=== PATIENT | male | born 1950 | race Caucasian/White ===

== ENCOUNTER 2017-08-13 13:59 | Emergency (ER) | payer OTHER, MEDICAID ==
[2017-08-13 14:21] VITALS: TEMP 97.5
--- NOTE | 2017-08-13 15:19 | EDPHY ---
H & P Time Seen by Provider: 08/13/17 14:58 HPI/ROS: HPI Numbness on top of foot. 67-year-old male by private vehicle. He is a resident at [facility]. He complains of numbness to the dorsal aspect of his left foot ongoing for 2-3 days but worse today. No history of trauma. He denies any loss of sensation or weakness elsewhere in his extremities. No headache. No neck pain. No back pain. He wears compression stockings on both legs secondary to peripheral edema. ROS: Constitutional: No fever, no chills. No weakness. Respiratory: No cough. No shortness of breath. Cardiac: No chest pain, no palpitations. Gastrointestinal: No abdominal pain, no vomiting, no diarrhea. Genitourinary: No hematuria. No dysuria or increased frequency with urination. Musculoskeletal: No back pain. No neck pain. No myalgias or arthralgias. Skin: Venous stasis dermatitis bilateral lower extremities. Neurological: No headache. As above. Otherwise no focal weakness or altered sensation.. Past medical history: Type 2 diabetes, hypertension, hyperlipidemia, sleep apnea. Pulmonary nodule. Social history: Here by himself. Nonsmoker. No alcohol. Physical Exam: General Appearance: Alert, no distress. Obese habitus. This patient is responding to questions appropriately and in full sentences. This patient appears well-hydrated and well-nourished. Eyes: Pupils equal and round no pallor or injection. No lid edema, erythema or injection. Respiratory: There are no retractions, lungs are clear to auscultation with good air movement bilaterally. Cardiovascular: Regular rate and rhythm. No murmur. Gastrointestinal: Abdomen is soft and nontender, no masses, bowel sounds normal. No focal tenderness at McBurney's point. No Broderick sign. Neurological: Motor sensory function is grossly intact except for some paresthesia L5 dermatomal distribution over the dorsum of the foot. He does have sensation to light touch in the web space between his 1st and 2nd toe. Cranial nerves are normal. Gait is normal. Skin: Warm and dry, no rashes. Musculoskeletal: Neck is supple and nontender. No midline cervical, thoracic, lumbar tenderness. Extremities are symmetrical. All joints range without pain or impingement. Psychiatric: No agitation. No depression. Database: EKG: Imaging: Procedures: Emergency department course: Vital signs reviewed. He is moderately hypertensive. Vital signs otherwise normal. He is afebrile. Patient's presentation is likely secondary to diabetic peripheral neuropathy. Another possibility is compression of his peroneal nerve from his compression stocking. I explained to him the plan the we would have him not wear his compression stocking at night for the next couple of nights to see if his altered sensation on the dorsum of his foot improved. He will follow up with his primary care physician at [facility] for re-evaluation in 1-2 days. Return to emergency department precautions were discussed with him. All of his questions were answered. He was discharged in good condition. Differential Diagnosis: The differential diagnosis on this patient includes but is not limited to peripheral neuropathy, localized compression a peripheral nerve. MS, CVA, radiculopathy unlikely. This represents a partial list of diagnoses considered. These considerations are based on history, physical exam, past history, reassessment and diagnostic testing. Constitutional: Initial Vital Signs Temperature (C) 36.4 C 08/13/17 14:09 Heart Rate 77 08/13/17 14:09 Respiratory Rate 18 08/13/17 14:09 Blood Pressure 158/68 H 08/13/17 14:09 O2 Sat (%) 96 08/13/17 14:09 O2 Delivery Mode Room Air Allergies/Adverse Reactions: No Known Allergies Allergy (Unverified 08/13/17 14:53) Home Medications: Medication Instructions Recorded Aspirin 08/13/17 Lasix 40 MG (*) 08/13/17 Levemir Flextouch 08/13/17 Lipitor 08/13/17 Metformin 1000 mg 08/13/17 Senna-S Tablet 08/13/17 Medical Decision Making - Data Points Laboratory Results: 08/13/17 14:48 POC Glucose 155 mg/dL H mg/dL (70-100) Point of Care Test Results: 08/13/17 14:48 POC Glucose 155 H Departure - Departure Disposition: Home, Routine, Self-Care Clinical Impression: Peripheral neuropathy Condition: Good Instructions: Peripheral Neuropathy (ED) Additional Instructions: Read and follow provided instructions. Follow-up with your primary care physician in 1-2 days for re-evaluation as discussed. Continue your medications as prescribed. Return to the emergency department for worsening symptoms or other serious concerns. Referrals: NONE *PRIMARY CARE P,. [Primary Care Provider] - As per Instructions
[2017-08-13 15:45] VITALS: BP 147/81; PULSE 94; RESP 22; O2SAT 93
--- NOTE | 2017-08-13 16:28 | ASMTCMCOM ---
CM Note CM Note Notes: Patient brought into ED from [facility] for numbness on top of his left foot, which started yesterday. Patient had never been to [facility] before and could not provide PMH to ED provider. This CM called and asked BM to fax over facesheet and pertinent PMH. Fax received. Patient is to be discharged back to ; this CM called and notified staff of pt's return. [facility] transport arranged. CM available for further assistance if needed. Date Signed: 08/13/2017 04:27 PM Electronically Signed By:Chastity Onofre RN
--- NOTE | 2017-08-13 16:49 | ASDISCHSUM ---
Discharge Information Plan Status:SNF Medically Cleared to Leave: Discharge Date:08/13/2017 03:45 PM D/C [facility]position[facility] ADT D/C Disposition:Home, Routine, Self-Care Projected Discharge Date:08/13/2017 03:45 PM Transportation at D/C:Wheelchair Van Discharge Delay Reason: Follow-Up Date:08/13/2017 03:45 PM Discharge Slot: Final Diagnosis: Placement Information Patient Contact Information Contact Name:HUNTER Relationship:Sister Address:[address] Work Phone: City:[place] Alternate Phone: State/Zip Code:[place] [address] Email: Financial Information Financial Class: Primary Plan Desc:MEDICARE OUTPATIENT Primary Plan Number:[id number] Secondary Plan Desc:MEDICA[place] Secondary Plan Number:[id number] Assessment Information [facility] CM Progress Note CM Note CM Note Notes: Patient brought into ED from [facility] for numbness on top of his left foot, which started yesterday. Patient had never been to [facility] before and could not provide PMH to ED provider. This CM called and asked to fax over facesheet and pertinent PMH. Fax received. Patient is to be discharged back to ; this CM called and notified staff of pt's return. [facility] transport arranged. CM available for further assistance if needed. Date Signed: 08/13/2017 04:27 PM Electronically Signed By:Chastity Onofre RN [facility] Emergency dept visits in Answers: 1 last 6 months Score: 1 Date Signed: 08/13/2017 04:48 PM Electronically Signed By:Chastity Sjoden, RN Intervention Information
== END 2017-08-13 15:45 | disposition home or self-care (01) ==
LOC: EDUNIT#
DX: G62.9 Polyneuropathy, unspecified (principal); I10 Essential (primary) hypertension; E11.9 Type 2 diabetes mellitus without complications; Z79.84 Long term (current) use of oral hypoglycemic drugs

== ENCOUNTER → 2017-08-26 | Outpatient (CLI) | payer OTHER, MEDICAID | LOC: FIMAGING 12:51 | DX: M51.36 Other intervertebral disc degeneration, lumbar region (principal); M12.88 Other specific arthropathies, not elsewhere classified, other specified site; M48.061 Spinal stenosis, lumbar region without neurogenic claudication; E11.40 Type 2 diabetes mellitus with diabetic neuropathy, unspecified; S31.819S Unspecified open wound of right buttock, sequela; E66.9 Obesity, unspecified; I10 Essential (primary) hypertension; E78.5 Hyperlipidemia, unspecified; G47.30 Sleep apnea, unspecified; R91.1 Solitary pulmonary nodule; M62.81 Muscle weakness (generalized); R26.89 Other abnormalities of gait and mobility ==

== ENCOUNTER → 2017-11-24 | Outpatient (CLI) | payer OTHER, MEDICAID | LOC: BHFA 15:30 | PROVIDERS: ATTEND Internal Medicine Cardiovascular Disease | DX: L97.821 Non-pressure chronic ulcer of other part of left lower leg limited to breakdown of skin (principal) ==

== ENCOUNTER → 2017-11-25 | Outpatient (CLI) | payer OTHER, MEDICAID | LOC: FIMAGING 07:23 | PROVIDERS: ATTEND Surgery | DX: I83.892 Varicose veins of left lower extremity with other complications (principal) ==

== ENCOUNTER 2017-12-16 11:06 | Inpatient (IN) | payer OTHER, MEDICAID ==
--- NOTE | 2017-12-16 11:07 | EDPHY ---
H & P Constitutional: Initial Vital Signs Temperature (C) 36.9 C 12/16/17 11:15 Heart Rate 92 12/16/17 11:15 Respiratory Rate 18 12/16/17 11:15 Blood Pressure 156/80 H 12/16/17 11:15 O2 Sat (%) 91 L 12/16/17 11:15 O2 Delivery Mode Room Air Allergies/Adverse Reactions: No Known Allergies Allergy (Unverified 08/13/17 14:53) Home Medications: Medication Instructions Recorded Aspirin [Aspirin 81mg (*)] 81 mg PO DAILY 08/13/17 Atorvastatin Calcium [Lipitor 40 40 mg PO HS 08/13/17 mg (*)] Furosemide [Lasix 40 MG (*)] 40 mg PO DAILY 08/13/17 Insulin Detemir [Levemir] 35 unit SQ HS 08/13/17 metFORMIN HCL [Glucophage 1000 mg] 1,000 mg PO BIDMEAL 08/13/17 Acetaminophen [Tylenol 325mg (*)] 650 mg PO TID 12/16/17 traMADol [Ultram 50 mg (*)] 100 mg PO TID 12/16/17 Medical Decision Making - Diagnostics Imaging Results: Imaging Impressions Chest X-Ray 12/16/17 11:15 Impression: No evidence for acute cardiopulmonary abnormality. Chronic findings as above. Chest/Thorax CTA 12/16/17 13:18 Impression: 1. No visible pulmonary embolus. 2. Nodular left lower lobe consolidation, with adjacent mucous plugging and linear opacities, suggesting this is inflammatory or infectious. Short-term follow-up CT is recommended in one month. 3. Scattered small noncalcified pulmonary nodules of doubtful clinical significance. These can also be followed up with chest CT. 4. Old unfused posterior left 7th and 8th rib fractures. Findings discussed with Narciso Cagle MD on 12/16/2017 at 1402 hours. Imaging: Discussed imaging studies w/ call center assistant Radiologist, I viewed and interpreted images myself ED Course/Re-evaluation: CHIEF COMPLAINT: Chest pain HISTORY OF PRESENT ILLNESS: This patient is an obese 67 year old male with history of hypertension, hyperlipidemia, and type II diabetes mellitus arriving via EMS complaining of chest pain onset 45 minutes ago. His discomfort is left-sided and feels like "someone is stepping on my chest". He rates this discomfort at 5/10 severity. Per EMS report, the patient had no relief after Nitro. The patient denies any shortness of breath. He did not feel well generally this morning, but was able to ambulate without increased difficulty. He endorses nausea, but has not vomited. He denies personal cardiac history of WA or stent placement. He has not undergone any provocative testing studies in the past. No fever, diarrhea, abdominal pain, urinary complaints, or other associated symptoms. REVIEW OF SYSTEMS: A 10 point review of systems was performed and is negative with the exception of the elements mentioned in the history of present illness. PHYSICAL EXAM: HR, BP, O2 Sat, RR. Temp noted General Appearance: Alert, well hydrated, appropriate, and non-toxic appearing. Head: Atraumatic without scalp tenderness or obvious injury Eyes: Pupils equal, round, reactive to light and accommodation, EOMI, no trauma , no injection. Ears: Clear bilaterally, no perforation, normal landmarks Nose: Atraumatic, no rhinorrhea, clear. Throat: There is no erythema or exudates, no lesions, normal tonsils, mucus membranes moist. Neck: Supple, 2+ carotid upstroke, nontender, no lymphadenopathy. Respiratory: No retractions, no distress, no wheezes, and no accessory muscle use. Lungs are clear to auscultation bilaterally. Cardiovascular: Regular rate and rhythm, no murmurs, rubs, or gallops. Bilateral carotid, radial, dorsalis pedis, and posterior tibial pulses intact. Good capillary refill all extremities. Gastrointestinal: Abdomen is obese, soft, nontender, no masses, no rebound, no guarding, no peritoneal signs. Musculoskeletal: Non-healing ulcer wounds present on lower extremities, dressings in place. Chronic venous stasis changes. Normal active ROM of all extremities. Neurological: Alert, appropriate, and interactive. Nonfocal neuro exam. Skin: No rashes, good turgor, no nodules on palpation. Past medical history: Type II Diabetes Mellitus, Hypertension, Hyperlipidemia, Sleep apnea, Pulmonary nodule. Past surgical history: Noncontributory. Family history: Noncontributory Social history: DIAGNOSTICS/PROCEDURES/CRITICAL CARE TIME: The 12 lead EKG was interpreted by myself. See hard copy and/or "tracemaster" electronic copy for interpretation. Sinus rhythm, rate 87. DIFFERENTIAL DIAGNOSIS: The differential diagnosis for the patient's chest pain included but was not limited to myocardial ischemia, pulmonary embolus, chest wall pain, pleural inflammation, and pulmonary infectious causes. MEDICAL DECISION MAKIN:07 Met EMS on arrival. 67 year old male presents with chest pain onset 45 minutes ago. Plan for EKG, chest x-ray, labs including CBC, chemistries, Troponin, D-dimer. EKG shows sinus rhythm, rate 87. Chest x-ray is negative for acute cardiopulmonary abnormality. Reviewed laboratory studies. Troponin negative. D-dimer is elevated at 1.02. Plan for CTA to rule out PE or other acute processes. 14:[address] Shah, radiologist. CTA negative for PE. Plan to admit patient for for chest pain rule out and further evaluation. 14:[address] Clemens, interior design instructor. He accepts admission to PCU for chest pain. - Data Points Laboratory Results: Laboratory Results 12/16/17 11:38 12/16/17 11:38 12/16/17 12/16/17 12/16/17 11:38 11:38 11:38 WBC 10.90 10^3/uL H 10^3/uL (3.80-9.50) RBC 4.03 10^6/uL L 10^6/uL (4.40-6.38) Hgb 11.3 g/dL L g/dL (13.7-17.5) Hct 35.1 % L % (40.0-51.0) MCV 87.1 fL fL (81.5-99.8) MCH 28.0 pg pg (27.9-34.1) MCHC 32.2 g/dL L g/dL (32.4-36.7) RDW 15.8 % H % (11.5-15.2) Plt Count 325 10^3/uL 10^3/uL (150-400) MPV 9.0 fL fL (8.7-11.7) Neut % (Auto) 69.6 % % (39.3-74.2) Lymph % (Auto) 15.0 % % (15.0-45.0) Day % (Auto) 7.7 % % (4.5-13.0) Eos % (Auto) 6.6 % % (0.6-7.6) Baso % (Auto) 0.5 % % (0.3-1.7) Nucleat RBC Rel Count 0.0 % % (0.0-0.2) Absolute Neuts (auto) 7.59 10^3/uL H 10^3/uL (1.70-6.50) Absolute Lymphs (auto) 1.64 10^3/uL 10^3/uL (1.00-3.00) Absolute Monos (auto) 0.84 10^3/uL H 10^3/uL (0.30-0.80) Absolute Eos (auto) 0.72 10^3/uL H 10^3/uL (0.03-0.40) Absolute Basos (auto) 0.05 10^3/uL 10^3/uL (0.02-0.10) Absolute Nucleated RBC 0.00 10^3/uL 10^3/uL (0-0.01) Immature Gran % 0.6 % % (0.0-1.1) Immature Gran # 0.06 10^3/uL 10^3/uL (0.00-0.10) D-Dimer 1.02 ug/mLFEU H ug/mLFEU (0.00-0.50) Sodium 139 mEq/L mEq/L (135-145) Potassium 4.8 mEq/L mEq/L (3.5-5.2) Chloride 105 mEq/L mEq/L (97-110) Carbon Dioxide 25 mEq/l mEq/l (22-31) Anion Gap 9 mEq/L mEq/L (8-16) BUN 24 mg/dL H mg/dL (7-23) Creatinine 1.1 mg/dL mg/dL (0.7-1.3) Estimated GFR > 60 Glucose 152 mg/dL H mg/dL (70-100) Calcium 9.3 mg/dL mg/dL (8.5-10.4) Troponin I < 0.012 ng/mL ng/mL (0.000-0.034) NT-Pro-B Natriuret Pep 486 pg/mL H pg/mL (0-125) Departure - Departure Disposition: [facility] Inpatient Acute Clinical Impression: Chest pain Qualifiers: Chest pain type: other chest pain Qualified Code(s): R07.89 - Other chest pain Condition: Fair Report Scribed for: Narciso Cagle Report Scribed by: Jessica Nava Date of Report: 12/16/17 Time of Report: 11:15
--- NOTE | 2017-12-16 11:27 | CPEKG ---
Heart Rate: 82 RR Interval: 732 P-R Interval: 192 QRSD Interval: 94 QT Interval: 400 QTC Interval: 468 P [place]: 87 QRS [place]: 33 T Wave [place]: 47 EKG Severity - NORMAL ECG - EKG Impression: SINUS RHYTHM Electronically Signed By: Narciso Cagle 16-Dec-2017 14:09:33
[2017-12-16 11:53] LABS: PLATELET COUNT 325 10^3/uL (150-400)
[2017-12-16] MEDS ORDERED: IOPAMIDOL (ISOVUE 370) 100 ML BTL IV ONE (13:24)
[2017-12-16] MEDS ORDERED: ACETAMINOPHEN 325 MG TAB PO PRN (15:43)
[2017-12-16] MEDS: IPRATROPIUM/ALBUTEROL 3 ML DEYVIAL IH SCH ×2 (16:58→21:28)
[2017-12-16] MEDS: traMADol 50 MG TAB PO SCH ×2 (17:06→20:28)
[2017-12-16] MEDS: ACETAMINOPHEN 325 MG TAB PO SCH ×2 (17:07→20:29)
[2017-12-16] MEDS: metFORMIN HCL 500 MG TAB PO SCH (17:08)
[2017-12-16] MEDS: CEFEPIME HCL 2 GM in STERILE WATER INJ 12.5 ML IV SCH (17:08)
--- NOTE | 2017-12-16 17:15 | GHP ---
[f rep st] HISTORY AND PHYSICAL DATE OF ADMISSION: 12/16/2017 CHIEF COMPLAINT: Chest pain. HISTORY OF PRESENT ILLNESS: The patient is a pleasant 67-year-old gentleman with a past medical hist ory of diabetes mellitus type 2 and hyperlipidemia, who [facility] with complaints of left-sided chest pain. He states it feels like someb bin is standing on his chest. He localizes it more towards the middle sternum. It is intermittent. He first noticed it over the past few days. He does state over the past 2 weeks, he has had a cough and felt that he may have caught something from one of the other residents at [facility]. No sub jective fevers have been noted. No pleuritic-type chest pains. No hemoptysis. He does not have any cardiac history but does have risk factors including early family history with his mother having an AK in her mid 50s, diabetes mellitus type 2, and hyperlipidemia which is currently treated with atorv astatin. In the emergency room, he had a D-dimer tested which was elevated at 1.02. This led to CT angiograph y of his chest, which did not show any pulmonary embolism but did show a left lower lobe consolidatio n. His initial troponin was negative, and his initial ECG was read as normal sinus rhythm. I do not appreciate any T-wave inversions or ST-segment deviations. PAST MEDICAL HISTORY: 1. Hypertension. 2. Obstructive sleep apnea. 3. Hyperlipidemia. 4. Diabetes mellitus type 2. 5. Venous insufficiency with venous stasis ulcer followed chronically in the [facility]. PAST SURGICAL HISTORY: Prior cystoscopy for renal stones. MEDICATIONS: Medication list is taken from his ambulatory orders tab. 1. Aspirin 81 mg daily. 2. Atorvastatin 40 mg nightly. 3. Lasix 40 mg daily. 4. Insulin detemir 35 units nightly. 5. Metformin 1000 units twice a day. 6. Tramadol 50 mg tablets, 100 mg 3 times a day. 7. Acetaminophen 650 mg 3 times a day. ALLERGIES: No known drug allergies. FAMILY HISTORY: Father at the age of 71 secondary to dementia. Mother in her mid 50s after having an acute AK. SOCIAL HISTORY: Patient is a nonsmoker currently. He smoked for a little bit less than 20 years, bu t quit in his mid 40s. He does not drink alcohol. He is currently retired. He has been residing at [facility] for the past 3 years. He states that he previously worked as a cook at the [employer]. Code status was reviewed. The patient is a full code status. Power of finance attorney was discussed but we never came to any ultimate conclusion as he has never been and has no children. His closest relative is his sister who he also resides with at [facility]. She has a dementia history. Othe rwise, there are other family members here in [place] but none of which she is close with. REVIEW OF SYSTEMS: CONSTITUTIONAL: No complaints of any subjective fevers or chills. He has noted weight loss which has been intentional over the past years while residing at [facility]. ENT: Po sitive for recent cough. No nasal congestion or eye symptoms. CARDIOVASCULAR: Positive for chest p ain described as pressure, somebody standing on his chest. RESPIRATORY: Positive for recent cough, but no subjective shortness of breath. GI: No nausea, vomiting, diarrhea, constipation. : No re port of any difficulty with urination. NEUROLOGIC: No complaints of any headaches or focal weakness . HEMATOLOGIC: No history of any pulmonary embolism or deep vein thrombosis. PSYCHIATRIC: No history of anxiety or depression. ENDOCRINE: Positive for diabetes mellitus type 2 and hyperlipidemia. No history of thyroid problems. SKIN: No new skin rashes but he does have a chronic wound that is fol lowed in the wound clinic on his left lower extremity. MUSCULOSKELETAL: No focal joint pains. PHYSICAL EXAMINATION: VITAL SIGNS: Temperature 36.8, blood pressure 134/77, heart rate 77, respirat ions 16, saturating 95% on room air. GENERAL: Patient appears comfortable. He is awake, alert, con versant, and able to provide a good history. HEENT: Extraocular movements appear intact. No sclera l icterus. Mucous membranes moist. NECK: No thyroid enlargement appreciated. CHEST: Clear on aus cultation. There is no significant wheezing. Possibly slight crackles at left lung base, but nothin g severe. HEART: Regular. No murmurs appreciated. ABDOMEN: Soft, nontender, nondistended. : No Webber catheter in place. EXTREMITIES: Edema of both lower extremities trace. He does have a wra p on the left lower extremity where his chronic wound is. There does not appear to be any erythema e xtending beyond the level of the compression wrap. NEUROLOGIC: Cranial nerves 2-12 appear intact. Strength 5/5 in the extremities. LABORATORY DATA: White blood cell count 10, hemoglobin 11.5, platelets 325. Sodium is 139, potassiu m 4.8, chloride 105, bicarb 25, BUN 24, creatinine 1.1, glucose 152. D-dimer is 1.02. BNP is 486. Troponin less than 0.012. IMAGIN. CT angiography chest, no PE, left lower lobe consolidation. 2. Chest x-ray, no acute cardiopulmonary findings. 3. ECG: Normal sinus rhythm. I do not appreciate any T-wave inversions or ST-segment changes. ASSESSMENT/PLAN: 1. Chest pain. This chest pain may, in fact, be related to infiltrate noted on chest CT, although pantera ackerman does have multiple risk factors for heart disease including early family history in his mother in h er 50s, as well as diabetes, hypertension, hyperlipidemia. He looks well enough to at least attempt an exercise treadmill test. I think this would be reasonable to do tomorrow, presuming troponins are negative overnight. 2. Pneumonia. The patient does have a left lower lobe infiltrate noted on chest imaging. I have or dered a procalcitonin, as well as a respiratory PCR panel. I recommend that we empirically start cef epime for now as he does reside at [facility]. Vancomycin I will hold off on for now, but an MRSA screen has been ordered. If he worsens overnight, I would recommend adding vancomycin. DuoNeb nebu lizers as well 4 times a day have been ordered. 3. Hypertension. The only antihypertensive agent he is on currently is Lasix. Monitor blood pressu res with this overnight. 4. Obstructive sleep apnea. I need to confirm with patient if he is currently on CPAP therapy. 5. Diabetes mellitus type 2. We will continue with his current Levemir insulin and metformin. Cont rol is uncertain. I will add an A1c with his morning labs. 6. Hyperlipidemia. Continue atorvastatin. 7. Venous insufficiency. Continue with compression and diuresis. Wound care consult was placed, as he does follow with them in the outpatient setting. 8. Deep venous thrombosis prophylaxis. Lovenox. DISPOSITION: I anticipate he will be here for over 2 midnights, probably 3 to 5 days, so will admit him under an inpatient status. /[id number]/MODL
[2017-12-16] MEDS ORDERED: NON-FORMULARY NEW DRUG (Metformin Hcl [Glucophage 1000 Mg] 1,000 MG) PO SCH (18:00)
[2017-12-16] MEDS: ATORVASTATIN CALCIUM 40 MG TAB PO SCH (20:28)
[2017-12-16] MEDS: INSULIN GLARGINE 100 UNITS/ML UNIT SC SCH (20:30)
[2017-12-16] MEDS ORDERED: PNEUMOC 13-VAL CONJ-DIP CRM/PF 0.5 ML SYR IM ONE (20:42)
[2017-12-16] MEDS ORDERED: NON-FORMULARY NEW DRUG (Insulin Detemir [Levemir] 35 UNIT) SQ SCH (21:00)
[2017-12-17 04:17] LABS: PLATELET COUNT 301 10^3/uL (150-400)
[2017-12-17] MEDS: CEFEPIME HCL 2 GM in STERILE WATER INJ 12.5 ML IV SCH ×2 (05:37→16:51)
[2017-12-17] MEDS: IPRATROPIUM/ALBUTEROL 3 ML DEYVIAL IH SCH ×4 (05:40→20:22)
--- NOTE | 2017-12-17 07:38 | PDMN ---
Medical Necessity Medical necessity: est los>2mn for chest pain and PNA; admit for IV abx, stress test and nebs, r/o MRSA; comorbid htn, ABBEY, DM HLD, and venous insufficiency w/ chronic wound, resides in LTC facility; per order and progress note 12/16/17
[2017-12-17] MEDS: ASPIRIN 81 MG CHEWABLE TAB PO SCH (09:12)
[2017-12-17] MEDS: traMADol 50 MG TAB PO SCH ×3 (09:12→21:23)
[2017-12-17] MEDS: ACETAMINOPHEN 325 MG TAB PO SCH ×3 (09:13→21:24)
--- NOTE | 2017-12-17 10:23 | ASMTCASEMG ---
Living Arrangements What is your living Answers: Alone arrangement? Who do you live with? Type Of Residence What kind of residence do Answers: Detention Facility you live in? Type of Residence Facility Name Notes: [facility] Discharge Plan Comments Coordination Status Comments Notes: Pts case discussed in morning rounds. Therapies have been ordered. Pt will most likely have a stress test today.Wound care has also been ordered. Pt will most likely return to [facility] when medically stable. Updates sent to [facility]. MARIELLA to follow. Plan: [facility] Date Signed: 12/17/2017 10:22 AM Electronically Signed By:CLEMENTINA Hampton
[2017-12-17] MEDS: FUROSEMIDE 40 MG TAB PO SCH (12:11)
[2017-12-17] MEDS: metFORMIN HCL 500 MG TAB PO SCH (13:02)
[2017-12-17] MEDS: ENOXAPARIN 40 MG/0.4 ML SYR SC SCH ×2 (13:33→21:25)
--- NOTE | 2017-12-17 13:59 | WOCRNPDOC ---
WOCRN Advanced Assessment Note - Skin Integrity Problem, Advanced Assess Left Posterior Lower Calf Dressing Type: Coban, Hydrofera Blue (transfer), Kerlix Dressing Description: Clean/Dry, Intact Exudate Amount: Moderate Exudate Color: Red, Reddish/Yellow Exudate Characteristic(s): Serosanguinous, Other Other Exudate Characteristic(s): bloody Integumentary Issue Intervention: Dressing Removed Joyce Wound Tissue: Lipodermatosclerosis, Hemosiderin Staining, Venous Dermatitis , Scarred, Lichenification, Hyperkeratotic Wound Bed Color: Red Wound Bed Constitution: Granulation Tissue (100% ) Wound Edges: Epithelizing, Attached Site Measurement - Head-to-Toe Length X Width X Depth (cm): 5.0x3.5x0.1 Pulse Location & Description: DP pulse 1+left, 2+right Extremity Temperature: Warm Peripheral Edema Location & Description: trace pitting edema posterior tibilias Skin Integrity Problem Comment: Discussed outpatient plan of care for VSU with PT Ami at outpatient wound healing center. Dr. Kwan would like to have inpatient ablation, let nurse Lisha MARQUEZ know. Wound bed is red and granulated , healing well. No concerns. Wound care will follow up next week. ALMA Abdullahi in room. Measurements for calf circumference are: 39.5 (right), 40.5 left. Spandigrip E will sent to RN for use.
[2017-12-17] MEDS ORDERED: REGADENOSON 0.4 MG/5 ML SYR IVP ONE (14:45)
--- NOTE | 2017-12-17 15:36 | HOSPPROG ---
Hospitalist Progress Note Assessment/Plan: 67 yo M w htn and dm a/w cp, small pneumonia cp: suspect 2/2 pneumonia stress test pending ekg non ischemic (interp by me) trop neg HCAP: started on cefepime add doxy dm: a1c <7 continue meds cough: follow proph: [facility] dispo: inpt Subjective: chest CT w small retrocardiac infiltrate ( interp by me) Objective: Vital Signs Temp Pulse Resp BP Pulse Ox 37.1 C 97 18 131/75 H 97 12/17/17 11:30 12/17/17 11:30 12/17/17 11:30 12/17/17 11:30 12/17/17 11:30 Microbiology 12/16/17 16:30 Respiratory Panel (PCR) - Final Nasal, Sinus - Swab No Organism Detected Laboratory Results 12/17/17 03:35 12/17/17 03:35 12/16/17 12/17/17 12/18/17 05:59 05:59 05:59 Intake Total 650 Balance 650 - Physical Exam Constitutional: no apparent distress, appears nourished Eyes: PERRL, anicteric sclera Ears, Nose, Mouth, Throat: moist mucous membranes, hearing normal Cardiovascular: regular rate and rhythym, no murmur, rub, or gallop Respiratory: no respiratory distress, no rales or rhonchi, other (cough w deep inspiration) Gastrointestinal: normoactive bowel sounds, soft, non-tender abdomen Genitourinary: no bladder fullness, no bladder tenderness Skin: warm, normal color Musculoskeletal: full muscle strength Neurologic: AAOx3 ICD10 Worksheet Patient Problems: Problems Problem Status Onset Chest pain Acute chronic disease mgmt/transitional care Acute
--- NOTE | 2017-12-17 16:20 | CPR ---
[f rep st] NONINVASIVE CARDIAC PROCEDURE REPORT PROCEDURE: Lexiscan injection for myocardial perfusion imaging study. SUPERVISING RECRUITMENT OFFICER: Max Taylor MD. INDICATION FOR PROCEDURE: Chest pressure and pain. PRE: After obtaining informed consent, ensuring patient's n.p.o. status of caffeine for greater than 12 hours, patient was placed on electrocardiogram. Initial EKG shows sinus rhythm, normal axis, no significant ST or T-wave abnormalities suggesting of ischemia. Patient denies any chest pain, shortn ess of breath, or symptoms suggesting of ischemia. Initial blood pressure 147/89, saturation 96%. INJECTION: Patient was given Lexiscan slow IV push followed by nuclear isotope. Within 1 minute of injection, patient reporting increased feeling of coughing, mild shortness of breath, but no chest pr essure or pain. It was noted heart rate did elevate up to 108 beats per minute, blood pressure dropp ed down to 116/101. Occasional PAC was noted. Within 5 minutes patient reported all symptoms subsid ed, heart rate returned back to baseline at 91 beats per minute, blood pressure back up to 153/75, sa turation 95%. IMPRESSION: A 67-year-old male with reported episodes of chest pressure at rest. Unable to run on [employer], undergoing Lexiscan myocardial perfusion imaging study. Did report mild shortness of breat h with initial dosing of Lexiscan with decreased heart rate and decreased blood pressure within 5 min utes return back to baseline and all symptoms subsided. Currently is pain free. Vital signs are sta ble. He will be taken down to Nuclear Medicine for post stress myocardial perfusion imaging. /[id number]/MODL
[2017-12-17] MEDS: DOXYCYCLINE HYCLATE 100 MG CAP/TAB PO SCH (21:23)
[2017-12-17] MEDS: INSULIN GLARGINE 100 UNITS/ML UNIT SC SCH (21:24)
[2017-12-17] MEDS: ATORVASTATIN CALCIUM 40 MG TAB PO SCH (21:24)
[2017-12-18 04:31] LABS: PLATELET COUNT 296 10^3/uL (150-400)
[2017-12-18] MEDS: CEFEPIME HCL 2 GM in STERILE WATER INJ 12.5 ML IV SCH (05:36)
[2017-12-18] MEDS: IPRATROPIUM/ALBUTEROL 3 ML DEYVIAL IH SCH ×2 (05:38→10:54)
[2017-12-18] MEDS: ACETAMINOPHEN 325 MG TAB PO SCH (08:35)
[2017-12-18] MEDS: DOXYCYCLINE HYCLATE 100 MG CAP/TAB PO SCH (08:36)
[2017-12-18] MEDS: FUROSEMIDE 40 MG TAB PO SCH (08:36)
[2017-12-18] MEDS: traMADol 50 MG TAB PO SCH (08:36)
[2017-12-18] MEDS: ASPIRIN 81 MG CHEWABLE TAB PO SCH (08:36)
[2017-12-18 11:03] VITALS: RESP 16
[2017-12-18 12:37] VITALS: BP 119/72; PULSE 94; TEMP 98.4; O2SAT 95
--- NOTE | 2017-12-18 13:48 | PDIAF ---
- Diagnosis Diagnosis: pneumonia Code Status: Full Code - Medication Management Discharge Medications: Medications to Continue on Transfer Aspirin [Aspirin 81mg (*)] 81 mg PO DAILY 08/13/17 [Last Taken 12/16/17] Atorvastatin Calcium [Lipitor 40 mg (*)] 40 mg PO HS 08/13/17 [Last Taken ] Furosemide [Lasix 40 MG (*)] 40 mg PO DAILY 08/13/17 [Last Taken 12/16/17] Insulin Detemir [Levemir] 35 unit SQ HS 08/13/17 [Last Taken 12/15/17] metFORMIN HCL [Glucophage 1000 mg] 1,000 mg PO BIDMEAL 08/13/17 [Last Taken ] Acetaminophen [Tylenol 325mg (*)] 650 mg PO TID 12/16/17 [Last Taken 12/16/17] traMADol [Ultram 50 mg (*)] 100 mg PO TID 12/16/17 [Last Taken 12/16/17] levOFLOXACIN [Levofloxacin] 750 mg PO DAILY #4 tablet 12/18/17 [Last Taken Unknown] [employer] Antibiotics: oral levofloxacin 750 po daily X 4 days Discharge Medications: Refer to the Discharge Home Medication list for PRN reason. - Orders Services needed: Registered Nurse, Physical Therapy, Occupational Therapy - Follow Up Care Current Providers and Referrals: Patient,NotPresent [Unknown] - As per Instructions
--- NOTE | 2017-12-18 13:50 | HOSPPROG ---
Hospitalist Progress Note Assessment/Plan: 67 yo M w htn and dm a/w cp, small pneumonia cp: suspect 2/2 pneumonia stress test +; small area at risk cardiology felt angiogram reasonable; he declined at this moment on aspirin agreed to outpt cardiology follow up HCAP: started on cefepime add doxy dm: a1c <7 continue meds cough: follow proph: [facility] dispo: inpt Subjective: refused cath. [facility] Objective: Vital Signs Temp Pulse Resp BP Pulse Ox 36.9 C 94 16 119/72 95 12/18/17 12:00 12/18/17 12:00 12/18/17 12:00 12/18/17 12:00 12/18/17 12:00 Microbiology 12/16/17 17:00 MRSA Culture - Final Nasal, Sinus - Swab Laboratory Results 12/18/17 03:37 12/18/17 03:37 12/17/17 12/18/17 12/19/17 05:59 05:59 05:59 Intake Total 650 1200 Balance 650 1200 - Physical Exam Constitutional: no apparent distress, appears nourished Eyes: PERRL, anicteric sclera Ears, Nose, Mouth, Throat: moist mucous membranes, hearing normal Cardiovascular: regular rate and rhythym, no murmur, rub, or gallop Respiratory: no respiratory distress, no rales or rhonchi Gastrointestinal: normoactive bowel sounds, soft, non-tender abdomen Genitourinary: no bladder fullness, No palomino in urethra Skin: warm, normal color Musculoskeletal: full muscle strength Neurologic: AAOx3 ICD10 Worksheet Patient Problems: Problems Problem Status Onset Chest pain Acute chronic disease mgmt/transitional care Acute
[2017-12-18] MEDS: ENOXAPARIN 40 MG/0.4 ML SYR SC SCH (14:19)
--- NOTE | 2017-12-18 15:34 | GCON ---
[f rep st] CONSULTATION HISTORY OF PRESENT ILLNESS: The patient is a 67-year-old gentleman who is here with anterior chest discomfort. He was sitting at [facility] where he lives in a place which he really enjoys , was quite comfortable and then he had a sensation of a man standing on his chest. It was a heavy man. It was a real discomfort. It was associated with some shortness of breath, but it only lasted 10 minutes. There was no radiation to the arm and jaw. There was no back pain. He has never had this before. He never has orthopnea, PND. He has dyspnea on exertion if he walks too fast, that has not changed any and it has been true for over 10 years. He is overweight, but he is dropping weight. He was 320, he is down to 280, and he is trying to continue losing and I am very supportive of that effort on his part and I am convinced that he can be very successful. He has never had this discomfort before. He has not had any more of it after that initial 10 minutes. It was not associated with sweatiness, nausea, vomiting. He had no lightheadedness, dizziness, near-syncope. He tells me he does not have syncope. He has no focal neurologic complaints whatsoever. He tries to be active at [facility] by going for walks every day for 10 minutes, maybe 15 minutes, and he stops not because he has pain in his legs or because he has chest pain or shortness of breath, he just gets tired of it and he has by then walked where he wants to be and then he just stays there. He has no trauma to the head, neck or chest. No palpitations. No history of atrial fibrillation, rheumatic disease, claudication or cerebrovascular disease. He is very happy with his life. He feels good and he feels so much better now. He wants to go home and he would like to go home today. He has a history of other medical issues which are significant. He has had over 1 year of being under [facility] a swollen left leg. Four months ago he had a biopsy done of the wound. There was some question whether maybe it was related to a cancer and the biopsies were all negative. His wound is getting better. His leg is a little less swollen and he continues with wound care. This left leg has been swollen for over 5 years. He tells me he had no history of a clot in his left leg ever in his life. It did not start due to trauma. He is seeing also Dr. Kwan, of our interventional radiology service who down the road is planning to do laser on that leg. His right leg has absolutely no edema. His other problems include obstructive sleep apnea. He sleeps on 2 pillows every night. He has no PND. He has no orthopnea. He is very comfortable sleeping on 1 pillow as well if he needs to. CARDIAC RISK FACTORS: Positive for obesity, hypertension, diabetes mellitus, hyperlipidemia. His cardiac risk factors are negative for family history of premature coronary disease, smoking, hyperuricemia, known coronary artery disease. He has never had atrial fibrillation. He has not had palpitations. He has never had a myocardial infarction or surgery of his heart. MEDICATIONS: Include Tylenol, tramadol, insulin, Lasix, aspirin, atorvastatin, metformin. ALLERGIES: None. FAMILY HISTORY: He has no family history of premature coronary artery disease. He has no history of unexplained sudden at a young age in his family. SOCIAL HISTORY: He was born in the [place], [place]. He is living at [facility] and has been there for approximately 3 years. He lives with his sister in the same room and he is very close to her. They have lived together on off over the years. He likes [facility] has great friends. He himself is not . He never has been. He does not smoke. He does not drink significant amounts of alcohol and his exercise is going for walks daily at [facility] and for doing exercise classes there and other exercises that he likes to do. REVIEW OF SYSTEMS: 10-point review of systems negative except as noted above. PHYSICAL EXAMINATION: VITAL SIGNS: His blood pressure is 110/70, heart rate 66 , respiratory rate 12. GENERAL: He is resting comfortably in his hospital chair. He is alert and oriented and very cooperative. HEENT: Pupils equal and reactive. Mucous membranes and mouth moist. NECK: Supple. CARDIOVASCULAR EXAM: S1, S2. Soft systolic murmur left sternal border. No diastolic murmur. No S3, S4. No rubs. PULMONARY: Rhonchi bilaterally. No rales, wheezing, or dullness. ABDOMEN: Soft, nontender, without masses. EXTREMITIES: He has major swelling of his left lower extremity, with a wound that is dressed. His right lower extremity is not swollen. He has no real calf tenderness on either side right or left. NEURO: Cranial nerves 2-12 are grossly normal. Motor and sensory are grossly intact. I did not do a careful sensory examination, and he may well have a neuropathy from many years of diabetes mellitus. LABORATORY DATA AND STUDIES: He had a CT angiogram of the chest, which showed left lower lobe consolidation. His chest x-ray showed nothing acute. His EKG shows sinus rhythm and nonspecific ST-T changes. His labs are attached. Troponin was negative. His D-dimer was 1.02, and the BNP is less than 500. His blood sugar was 152, and his creatinine was 1.1 with a BUN of 24. ASSESSMENT AND PLAN: 1. Chest pain. 2. Hypertension. 3. Hyperlipidemia. 4. Obesity. 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 He did not have radiation, he did not have back pain, and he has never had this before or after. It went away approximately 10 minutes and has not recurred. It does not have a pleuritic component. He was sitting at rest and not under any stress at the time it occurred. It is not associated with pulmonary issues, such as a cough, sputum production, upper respiratory tract infection, etc. It is not associated with any GI complaints of nausea, vomiting, heartburn, and he has had no other GI symptoms of diarrhea, weight loss or early satiety, etc. There is nothing that makes it sound like pulmonary embolic disease, and in fact, he has had a CT angiogram that has ruled that out. He has had many years of a swollen left leg, and I will go into that later after we finish talking about this group of problems. The worrisome possibility is that this is coronary artery disease. With his risk factors that are so prominent, I am very worried about him. I have talked to him about this for over a half an hour, and he has a good understanding of what is going on and what I am thinking. I would strongly recommend that he get a coronary angiogram at this point in time with his abnormal nuclear study, and I would recommend that just based on his symptoms and history, and his medical story alone. Even if he had a negative nuke, if he had recurrent pain, I would insist on angiography. He understands this. I went over the fact that he may need a percutaneous intervention or possibly open-heart surgery. He is not afraid of those things, but he says since he is not having pain at this time, he does not want to proceed with any kind of further testing, even noninvasive testing, such as a coronary angiogram. He does have a good understanding. We spent a lot of time on it. He is very comfortable going home. He understands that he is at risk of sudden , stroke, myocardial infarction, significant arrhythmias, permanent disability from what could happen, and that if we found this out ahead of time and could interact on it, his prognosis might be much, much better. He is very comfortable with leaving, does not want any testing, and does not want to stay. The maricarmen thing for him is that he is very happy with where he lives. He loves his environment. He lives with his sister, whom he really cares for, and they have been close since they were born. He likes the people at [facility]. He is willing to go for walks and try to continue his weight loss, and he will come see me in clinic in a month or so. He will decide about that, so I think that he is at significant risk for problems. He does not want to change medicines or do anything different right now. He is taking aspirin, atorvastatin , Lasix, and metformin on a daily basis. I would like to add a beta autumn and an JASSI inhibitor to his management. He does not want to do that right now, but he will consider it when he sees me in clinic. We will have a discussion and see what he is willing to do. He feels like he just feels too well to bother with adding more complicated medications. I went over all of this with him. We filled out an against medical advice form. His aide was there and signed on as a witness, and then I signed the paperwork. The patient totally understood what I was saying about the risk of , heart attack, permanent damage, cerebrovascular disease, etc., but he is going home now without further testing. So he signed AMA, as well as refusing a procedure form. I have talked to Dr. Teran about this, and I will wish him really well and be really happy to see him in clinic in 3 or 4 weeks. I hope he does well. I have reinforced over and over again that if he has any recurrent symptoms, he really should call 911 and come in and be further evaluated, and he will decide if he wants to do that or not. There is a question about him having a pneumonic infectious process that is causing his changes on his radiologic evaluation, and he has been started on treatment for that by the hospitalist. Left swollen leg. Wound in the left leg: He has been getting treatment for this for over a year at the wound clinic, and his left leg has been swollen for 5 years. He is continuing to walk. He is seeing the doctors at wound care. They are going to have Dr. Kwan do a procedure soon, and we are available to help in any way we can, but we are going to leave the management of that problem to the experts. In the meantime, I am happy to see him any time. /[id number]/MOD and [id number], 12/18/17, [address] [facility]
--- NOTE | 2017-12-18 17:05 | GDS ---
[f rep st] DISCHARGE SUMMARY DISCHARGE DIAGNOSES: 1. Hospital-acquired/healthcare-associated pneumonia. 2. Hypertension. 3. Sleep apnea. 4. Type 2 diabetes. 5. Venous insufficiency. 6. Hyperlipidemia. 7. Chest pain on the left side. 8. Possible mild inferior lateral ischemia. HOSPITAL COURSE: Please see admission history and physical by Dr. Sarath Harden. The patient presen katheryn with left-sided chest pain. He had an unremarkable chest x-ray and EKG. His troponins were nega tive. He had an elevated D-dimer, so a CT was obtained, which showed no PE, but a very small nodular pneumonia in the left retrocardiac region. He was started on cefepime and doxycycline. He was afeb rile here. His hemoglobin A1c was 6.9. Because of that, a stress test was performed, which was cons istent with a small area of ischemic myocardium versus artifact. He does have a fair amount of abdom inal obesity. The patient was seen by Cardiology, who recommended catheterization. He declined this , and he is discharged home to [facility], where he lives. /[id number]/MODL
--- NOTE | 2017-12-19 14:29 | ASDISCHSUM ---
Discharge Information Plan Status:SNF Medically Cleared to Leave:12/17/2017 Discharge Date:12/18/2017 04:11 PM CM D/C Disposition: ADT D/C Disposition:Home, Routine, Self-Care Projected Discharge Date:12/18/2017 11:00 AM Transportation at D/C: Discharge Delay Reason: Follow-Up Date:12/18/2017 11:00 AM Discharge Slot: Final Diagnosis: Placement Information Referral Type:*Long Term/SNF Referral ID:[id number] Provider Name:Baldev Ayala/JENIFFER Packer Address 1:[address] Phone Number: Address 2: Fax Number: City:[place] Selection Factors: State:[place] Patient Contact Information Contact Name:KATHERYNANG Relationship:Sister Address:[address] Work Phone: City:[place] Alternate Phone: State/Zip Code:[place] [address] Email: Financial Information Financial Class:Medicare Primary Plan Desc:MEDICARE INPATIENT Primary Plan Number:[id number] Secondary Plan Desc:[place] Secondary Plan Number:[id number] Assessment Information [facility] Initial CM Assessment Living Arrangements What is your living Answers: Alone arrangement? Who do you live with? Type Of Residence What kind of residence do Answers: Half-Way Facility you live in? Type of Residence Facility Name Notes: [facility] Discharge Plan Comments Coordination Status Comments Notes: Pts case discussed in morning rounds. Therapies have been ordered. Pt will most likely have a stress test today.Wound care has also been ordered. Pt will most likely return to [facility] when medically stable. Updates sent to [facility]. CM to follow. Plan: [facility] Date Signed: 12/17/2017 10:22 AM Electronically Signed By:CLEMENTINA Hampotn Case Management Discharge Plan Note Case Management Discharge Discharge Order Complete? Answers: Yes Patient to Obtain Answers: Other Notes: [facility] Medications Transportation Arranged Answers: Other Notes: [facility] W/C Transport will Pick (Date 12/18/2017 03:30 PM & Time) EMTALA Complete Answers: No Case Management Transport Answers: No Form Complete Faxed Final Orders Answers: Yes Agency/Facility Transfer Answers: Yes Report Printed & Faxed to Receiving Agency Family Notified Answers: No Discharge Comments Notes: Pts case discussed in morning rounds. Pt is being discharged back to [facility] today. CM coodinated d/c with Vanessa at [facility]. DC orders sent to [facility]. CM provided ALMA Husain w/ phone number to give report. CM available for changes. Plan: [facility] Date Signed: 12/18/2017 02:20 PM Electronically Signed By:CLEMENTINA Hampton Intervention Information
== END 2017-12-18 16:11 | DRG 195 ==
LOC: EDUNIT# → F2W 15:16 → OBSVTOIN 15:43
PROVIDERS: ADMIT Internal Medicine; ATTEND Internal Medicine
DX: J18.8 Other pneumonia, unspecified organism (principal); I10 Essential (primary) hypertension; G47.33 Obstructive sleep apnea (adult) (pediatric); E11.9 Type 2 diabetes mellitus without complications; E78.5 Hyperlipidemia, unspecified; I99.8 Other disorder of circulatory system; I87.2 Venous insufficiency (chronic) (peripheral); E66.9 Obesity, unspecified; Z23 Encounter for immunization; Z79.84 Long term (current) use of oral hypoglycemic drugs
CPT/HCPCS: 97116-GP; 97161-GP; 97530-GP; A9500; G0009; G8978-GP-CJ; G8979-GP-CI; G8980-GP-CI; J0692; J1650; J1815; J2785; Q9967

== ENCOUNTER 2018-01-06 07:43 | Day surgery (SDC) | payer OTHER, MEDICAID ==
[2018-01-06] MEDS ORDERED: fentaNYL 100 MCG/2 ML INJ IVP PRN (07:50)
[2018-01-06] MEDS ORDERED: ONDANSETRON 4 MG/2 ML VIAL IVP ONE (07:50)
[2018-01-06] MEDS ORDERED: MIDAZOLAM 2 MG/2 ML VIAL IVP PRN (07:50)
[2018-01-06] MEDS ORDERED: NALOXONE HCL 0.4 MG/ML INJ ONE (07:50)
[2018-01-06] MEDS ORDERED: MEPERIDINE 25 MG/ML SYR IVP PRN (07:50)
[2018-01-06] MEDS ORDERED: GLUCAGON HCL 1 MG VIAL IVP PRN (07:50)
[2018-01-06] MEDS ORDERED: HEPARIN 10,000 UNIT/10 ML MDV (1,000 UNIT/ML) IVP PRN (07:50)
[2018-01-06] MEDS ORDERED: fentaNYL 100 MCG/2 ML INJ ONE (07:50)
[2018-01-06] MEDS ORDERED: PROTAMINE SULFATE 50 MG/5 ML VIAL IVP PRN (07:50)
[2018-01-06] MEDS ORDERED: FLUMAZENIL 0.5 MG/5 ML MDV IVP PRN (07:50)
[2018-01-06] MEDS ORDERED: NALOXONE HCL 0.4 MG/ML INJ IVP PRN (07:50)
[2018-01-06] MEDS ORDERED: NS 1,000 ML IV ONE (07:50)
[2018-01-06] MEDS ORDERED: ALTEPLASE 2 MG VIAL IVP PRN (07:50)
[2018-01-06] MEDS ORDERED: SODIUM TETRADECYL SULFATE 3% 2 ML VIAL IV ONE (08:17)
[2018-01-06] MEDS ORDERED: LIDO/EPI 1% **for epidural** 30 ML SDV ONE (08:17)
[2018-01-06 08:59] VITALS: RESP 16
[2018-01-06 11:07] VITALS: PULSE 65; TEMP 97.5
[2018-01-06 11:09] VITALS: BP 126/67; O2SAT 92
== END 2018-01-06 11:17 ==
LOC: FIMAGING 07:43
PROVIDERS: ATTEND Radiology Diagnostic Radiology
PROC: 3E033TZ Introduction of Destructive Agent into Peripheral Vein, Percutaneous Approach (ICD-10-PCS; principal; 2018-01-06 08:50)
PROC: 06LQ3ZZ Occlusion of Left Saphenous Vein, Percutaneous Approach (ICD-10-PCS; principal; 2018-01-06 08:50)
DX: I87.2 Venous insufficiency (chronic) (peripheral) (principal)
CPT/HCPCS: 36471; 36478; 99152; 99153; C1769; J2310; J3010

== ENCOUNTER 2018-01-19 17:27 | Inpatient (IN) | payer OTHER, MEDICAID ==
--- NOTE | 2018-01-19 17:34 | EDPHY ---
HPI/HX/ROS/PE/MDM Narrative: CHIEF COMPLAINT: Leg wound, r/o sepsis HPI: This patient is a 67 y/o male with history of venous insufficiency arriving via EMS from [facility] for evaluation of a left leg wound and possible sepsis. He has a chronic venous stasis ulcer and is followed by wound care. He underwent an ablation to this chronic wound about two weeks ago. He complains of fever and erythema increasing up the thigh from his knee over the past week. Staff at the patient's assisted living facility were concerned regarding the possibility of sepsis. HR 110 in transport, SpO2 94% on room air. The patient feels generally ill. No cough, vomiting, diarrhea, or other associated symptoms. REVIEW OF SYSTEMS: Aside from elements discussed in the HPI, a comprehensive 10-point review of systems was reviewed and is negative. PMH: Hypertension. ABBEY. Hyperlipidemia. Diabetes mellitus type 2. Venous insufficiency with venous stasis ulcer followed chronically in [facility]. SOCIAL HISTORY: Former smoker. Denies alcohol use. Lives at [facility]. PHYSICAL EXAM: General:Patient is alert, in no acute distress. ENT:Eyes are normal to inspection. ENT inspection normal. Neck: Normal inspection. Full range of motion. Respiratory:No respiratory distress. Breath sounds normal bilaterally. Cardiovascular: Regular rate and rhythm. Strong peripheral pulses. Normal cap refill. Abdomen: The abdomen is obese, nontender to palpation. Back: Normal to inspection. No tenderness to palpation. Skin: Normal color. No rash. Warm and dry. Extremities: Bilateral chronic skin changes noted to the lower extremities. There is confluent severe erythema on the inner thigh on the left leg extending approximately 6 in from the groin. No discharge or abscess noted. Area is tender and warm. Neuro: Oriented x3. Normal motor function. Normal sensory function. ED Course: 17:33 Met EMS at bedside. 67 y/o male presents with history of chronic patricia stasis ulcer presents with worsening erythema, warmth, and tenderness extending up his left leg. He underwent laser ablation of the left lesser saphenous vein on 01/06/18. Plan for chest x-ray, labs including CBC, chemistries, lactic acid, blood cultures. CXR shows moderate cardiomegaly, unchanged from kiel studies. No pneumonia. Lactic acid 1.8, WBC elevated at 18,000. 18:30 Plan to admit patient for sepsis and cellulitis. As lactic acid is within normal limits, patient is not in severe sepsis at this time. 18:[address] Woodard, hospitalist. She accepts admission for cellulitis and sepsis. - Data Points Imaging Results: Imaging Impressions Chest X-Ray 01/19/18 17:33 Impression: Moderate cardiomegaly, unchanged.. Imaging: I viewed and interpreted images myself Laboratory Results: Laboratory Results 01/19/18 17:48 01/19/18 17:48 01/19/18 01/19/18 01/19/18 18:35 17:48 17:48 WBC RBC Hgb Hct MCV MCH MCHC RDW Plt Count MPV Neut % (Auto) Lymph % (Auto) [place] % (Auto) Eos % (Auto) Baso % (Auto) Nucleat RBC Rel Count Absolute Neuts (auto) Absolute Lymphs (auto) Absolute Monos (auto) Absolute Eos (auto) Absolute Basos (auto) Absolute Nucleated RBC Immature Gran % Immature Gran # PT Pending REJ INR Pending REJ APTT Pending REJ VBG Lactic Acid Turbidity TNP Sodium TNP Potassium TNP Chloride TNP Carbon Dioxide TNP Anion Gap TNP BUN TNP Creatinine TNP Estimated GFR TNP Glucose TNP Calcium TNP Specimen Hemolysis TNP 01/19/18 01/19/18 17:48 17:48 WBC 18.00 10^3/uL H 10^3/uL (3.80-9.50) RBC 3.87 10^6/uL L 10^6/uL (4.40-6.38) Hgb 11.0 g/dL L g/dL (13.7-17.5) Hct 33.4 % L % (40.0-51.0) MCV 86.3 fL fL (81.5-99.8) MCH 28.4 pg pg (27.9-34.1) MCHC 32.9 g/dL g/dL (32.4-36.7) RDW 15.3 % H % (11.5-15.2) Plt Count 308 10^3/uL 10^3/uL (150-400) MPV 9.3 fL fL (8.7-11.7) Neut % (Auto) 89.3 % H % (39.3-74.2) Lymph % (Auto) 5.1 % L % (15.0-45.0) [place] % (Auto) 4.8 % % (4.5-13.0) Eos % (Auto) 0.0 % L % (0.6-7.6) Baso % (Auto) 0.2 % L % (0.3-1.7) Nucleat RBC Rel Count 0.0 % % (0.0-0.2) Absolute Neuts (auto) 16.08 10^3/uL H 10^3/uL (1.70-6.50) Absolute Lymphs (auto) 0.92 10^3/uL L 10^3/uL (1.00-3.00) Absolute Monos (auto) 0.86 10^3/uL H 10^3/uL (0.30-0.80) Absolute Eos (auto) 0.00 10^3/uL L 10^3/uL (0.03-0.40) Absolute Basos (auto) 0.03 10^3/uL 10^3/uL (0.02-0.10) Absolute Nucleated RBC 0.00 10^3/uL 10^3/uL (0-0.01) Immature Gran % 0.6 % % (0.0-1.1) Immature Gran # 0.11 10^3/uL H 10^3/uL (0.00-0.10) PT INR APTT VBG Lactic Acid 1.8 mmol/L mmol/L (0.7-2.1) Turbidity Sodium Potassium Chloride Carbon Dioxide Anion Gap BUN Creatinine Estimated GFR Glucose Calcium Specimen Hemolysis Medications Given: Vancomycin/Sodium Chloride (Vancomycin 1 Gm (Premix)) 250 mls @ 250 mls/hr IV EDNOW ONE PRN Reason: Protocol Stop: 01/19/18 19:26 Last Admin: 01/19/18 18:43 Dose: 250 mls Discontinued Medications Sodium Chloride (Ns) 2,300 mls @ 4,600 mls/hr 30 ml/kg infuse over 30 min ( 2300 ml) IV EDNOW ONE PRN Reason: Protocol Stop: 01/19/18 18:31 Last Admin: 01/19/18 18:32 Dose: 2,300 mls General Time Seen by Provider: 01/19/18 17:29 Initial Vital Signs: Initial Vital Signs Temperature (C) 36.8 C 01/19/18 17:27 Heart Rate 95 01/19/18 17:27 Respiratory Rate 16 01/19/18 17:27 Blood Pressure 89/66 L 01/19/18 17:27 O2 Sat (%) 94 01/19/18 17:27 O2 Delivery Mode Nasal Cannula O2 (L/minute) 2 Allergies/Adverse Reactions: No Known Allergies Allergy (Unverified 08/13/17 14:53) Home Medications: Medication Instructions Recorded Aspirin [Aspirin 81mg (*)] 81 mg PO DAILY 08/13/17 Atorvastatin Calcium [Lipitor 40 40 mg PO HS 08/13/17 mg (*)] Furosemide [Lasix 40 MG (*)] 40 mg PO DAILY 08/13/17 metFORMIN HCL [Glucophage 1000 mg] 1,000 mg PO BIDMEAL 08/13/17 Acetaminophen [Tylenol 325mg (*)] 650 mg PO TID 12/16/17 traMADol [Ultram 50 mg (*)] 100 mg PO TID 12/16/17 Bisacodyl 1 MD PRN PRN 01/02/18 Bisoprolol Fumarate 5 mg PO DAILY 01/02/18 Levemir Flextouch 35 unit SQ HS 01/02/18 Lipitor 20 mg (*) 20 mg PO HS 01/02/18 Oxycodone HCl 5 mg PO Q8 PRN 01/02/18 Senna-Docusate Sodium Tablet 8.6 - 50 mg PO HS 01/02/18 Tylenol 325mg (*) 650 mg PO PRN PRN 01/02/18 Zinc 50 mg PO HS 01/02/18 Departure - Departure Disposition: [facility] Inpatient Acute Clinical Impression: Sepsis Qualifiers: Sepsis type: sepsis due to unspecified organism Qualified Code(s): A41.9 - Sepsis, unspecified organism Cellulitis Qualifiers: Site of cellulitis: extremity Site of cellulitis of extremity: lower extremity Laterality: left Qualified Code(s): L03.116 - Cellulitis of left lower limb Condition: Fair Referrals: Patient,NotPresent [Primary Care Provider] - As per Instructions Report Scribed for: Gordy Pérez Report Scribed by: Jessica Nava Date of Report: 01/19/18 Time of Report: 17:34 Physician Review and Approval Statement: Portions of this note were transcribed by an ED scribe. I personally performed the history, physical exam, and medical decision making; and confirm the accuracy of the information in the transcribed note.
[2018-01-19] MEDS ORDERED: NS 2,300 ML IV ONE (18:02)
[2018-01-19 18:06] LABS: PLATELET COUNT 308 10^3/uL (150-400)
[2018-01-19] MEDS ORDERED: VANCOMYCIN HCL/NORMAL SALINE 250 ML IV ONE (18:27)
[2018-01-19 18:53] LABS: INR 1.27 (0.83-1.16); PROTIME(PATIENT) 16.1 SEC (12.0-15.0)
[2018-01-19] MEDS ORDERED: ONDANSETRON 4 MG/2 ML VIAL IVP PRN (21:26)
[2018-01-19] MEDS ORDERED: ACETAMINOPHEN 325 MG TAB PO PRN (21:26)
[2018-01-19] MEDS ORDERED: HYDROmorphone HCL/NS 0.5 MG/ML SYR IVP PRN (21:26)
--- NOTE | 2018-01-19 22:11 | GHP ---
[f rep st] HISTORY AND PHYSICAL DATE OF ADMISSION: 01/19/2018 CHIEF COMPLAINT: Left leg pain and swelling. HISTORY: The patient is a 67-year-old male with a history of chronic venous stasis and a left leg wo und for which he is [facility]. He had an endovenous laser ablation of his le sser saphenous vein on the left leg 2 weeks ago. This was performed by Dr. Kwan. Initially he did ve ry well with minimal symptoms after the procedure. About 4 days ago, he noticed increasing erythema and redness, which is extending up his leg towards his groin beyond his dressing and wrapping of his left lower leg wound. He denies any fever. He did have some nausea and vomiting over the weekend. He has had generalized malaise. PAST MEDICAL HISTORY: 1. Chronic venous insufficiency with a chronic leg wound. 2. Hyperlipidemia. 3. Obstructive sleep apnea. 4. Hypertension. 5. Positive cardiac stress test with cardiac catheterization declined. MEDICATIONS: Please see computer record for full detailed list. ALLERGIES: No known drug allergies. SOCIAL HISTORY: No smoking. No alcohol. He has lived at [facility] for the last 3 years. REVIEW OF SYSTEMS: Complete review of systems obtained. Review of systems negative regarding consti tutional, HEENT, GI, pulmonary, cardiovascular, , hematology, skin, musculoskeletal, endocrine, psy ch, except for positives and negatives as noted in HPI. FAMILY HISTORY: Reviewed and noncontributory to presenting complaint. PHYSICAL EXAMINATION: GENERAL: Well-developed, well-nourished male. No acute distress. VITAL SIGN S: Temperature 36.8, pulse 96, blood pressure 120/81, satting 97% on room air. EYES: Normal conjun ctivae. Pupils equal and reactive to light. ENT: Normal ears and nose. Hearing intact. Normal li ps and teeth. Oropharynx moist. NECK: Trachea midline. No thyromegaly. CHEST: Normal respirator y effort. LUNGS: Clear to auscultation bilaterally. CARDIOVASCULAR: Regular rhythm. No murmur. Left lower extremity edema with deep beefy red erythema extending up the leg all the way to the groin , with extensive area of inflammation on the inner thigh. His lower leg wound is wrapped with some c rusting of the dressing, which still needs to be taken down. ABDOMEN: Soft, nontender. No hepatosp lenomegaly. SKIN: Warm, dry, intact, without rash. SKIN: As discussed above regarding lower extre mity examination. MUSCULOSKELETAL: No cyanosis, clubbing. Strength 5/5, upper and lower extremitie s. NEUROLOGIC: Cranial nerves intact. Normal sensation to light touch. PSYCH: Alert and oriented x3. Normal affect. Normal judgment and insight. Normal memory. LABORATORY DATA: White count 18.0, hematocrit 33.4, platelets 308. Sodium 135, potassium 4.1, chlor tyrell 103, bicarb 21, BUN 34, creatinine 1.8, glucose 169. INR is 1.27. Lactate is 1.8. Chest x-ray shows cardiomegaly. This case was discussed with ER physician, Gordy Pérez. He did give a dose of IV vancomycin. MEDICAL RECORDS REVIEW: I reviewed records from Dr. Kwan regarding recent endovenous laser treatment, which was performed on January 06. He also had a hospitalization about 1 month ago and was discharg ed on December 18 with hospital-acquired pneumonia and possible mild reversible ischemia on a stress te st, for which he declined cardiac catheterization. ASSESSMENT/PLAN: 1. Left lower extremity cellulitis with sepsis. The leg wound is the likely source, although he als o had a recent procedure. I suspect streptococcus so will change him to IV Ancef and consult Infecti ous Disease. Will consult wound nurse. 2. Acute renal failure. Will hydrate with IV fluids. He did get a sepsis fluid bolus in the emerge ncy room. Recheck creatinine in the morning. 3. Chronic venous stasis, status post endovenous laser treatment on January 06. 4. Positive cardiac stress test. Cardiac catheterization declined. 5. Morbid obesity. Body mass index 40. COR STATUS: Full. ADMISSION STATUS: 1. Will admit to inpatient as he is medically complex. Anticipate greater than 2 midnights for stab ilization. 2. DVT prophylaxis. He is high risk. Will place him on subcu Lovenox. /[id number]/MODL
[2018-01-19] MEDS: INSULIN GLARGINE 100 UNITS/ML UNIT SC SCH (22:40)
[2018-01-19] MEDS: traMADol 50 MG TAB PO SCH (22:44)
[2018-01-20] MEDS ORDERED: traMADol 50 MG TAB PO SCH
[2018-01-20 04:46] LABS: PLATELET COUNT 267 10^3/uL (150-400)
[2018-01-20] MEDS: traMADol 50 MG TAB PO SCH ×3 (09:57→22:22)
[2018-01-20] MEDS: BISOPROLOL FUMARATE 5 MG TAB PO SCH (10:00)
[2018-01-20] MEDS: ENOXAPARIN 40 MG/0.4 ML SYR SC SCH (10:00)
[2018-01-20] MEDS: ASPIRIN 81 MG CHEWABLE TAB PO SCH (10:00)
--- NOTE | 2018-01-20 10:03 | PDMN ---
Medical Necessity Medical necessity: Change to IP, as of 01/19/18, per MD; los >2 mn for ongoing management of sepsis, LLE cellulitis & acute renal failure; admit for further workup/monitoring, ID/Wound Care consults, IV abx, IVFs & therapies; hx chronic venous statis s/p endovenous laser treatment, positive cardiac stress test w/ declined cardiac cath, htn; per H&P & order 01/19/18
[2018-01-20] MEDS: oxyCODONE IR 5 MG TAB PO PRN (10:10)
[2018-01-20] MEDS: NS 1,000 ML IV SCH (10:18)
[2018-01-20] MEDS ORDERED: ceFAZolin 2 GM/DEXTROSE 100 ML IV SCH (14:00)
--- NOTE | 2018-01-20 15:14 | HOSPPROG ---
Hospitalist Progress Note Assessment/Plan: DIAGNOSES: -acute sepsis with metabolic acidosis and organ failure, appears resolved -cellulitis of leg with chronic wound in the leg; history of chronic stasis related edema of this leg -acute renal failure due to above -normocytic anemia which is worse than noted last month, no lab data going back further than that for comparison * change may just be due to his acute infectious illness at this time -history of recent abnormal treadmill stress test, patient currently declining coronary angiography so far -obesity PLANS: Continue current antibiotics Continue hydration and follow renal function very closely Wound care for leg Follow hemoglobin to make sure it is not getting worse Check iron levels Follow closely for any signs of cardiac or related symptoms DVT prophylaxis SUBJECTIVE: Still with significant pain in his leg, unchanged from yesterday and his leg appears the same to him visually today as yesterday No other discomforts no other new symptoms OBJECTIVE Vitals reviewed: Blood pressure and pulse now normalized, no fever Director Gift, my review: Exam: alert oriented skin warm dry color ok resps not labored lungs clear BSs heart regular abd soft nondistended nontender, bowel sounds present limbs warm, no edema iv site ok Laboratory data: White blood cell count still fairly elevated though it is a bit lower than yesterday Anemia is a bit worse than recent with hemoglobin 9.7 Metabolic acidosis resolved Microbiology data: No growth in blood cultures to date Objective: Vital Signs Temp Pulse Resp BP Pulse Ox 36.7 C 65 16 100/61 97 01/20/18 11:50 01/20/18 11:50 01/20/18 11:50 01/20/18 11:50 01/20/18 11:50 Laboratory Results 01/20/18 04:25 01/20/18 04:25 01/19/18 01/20/18 01/21/18 06:59 06:59 06:59 Intake Total 941 Balance 941 PT 16.1 SEC (12.0-15.0) H 01/19/18 18:35 INR 1.27 (0.83-1.16) H 01/19/18 18:35 ICD10 Worksheet Patient Problems: Problems Problem Status Onset Cellulitis Acute Sepsis Acute Chest pain Acute chronic disease mgmt/transitional care Acute
[2018-01-20] MEDS ORDERED: ZINC GLUCONATE 50 MG PO SCH (16:00)
[2018-01-20] MEDS: ZINC GLUCONATE 50 MG TAB PO SCH (16:01)
[2018-01-20] MEDS: ceFAZolin 2 GM/SWFI 2 GM/20 ML SYR IVP SCH ×2 (16:01→22:20)
--- NOTE | 2018-01-20 16:14 | ASMTCMCOM ---
CM Note CM Note Notes: Chart reviewed for discharge planning purposes. 67 year old male admitted via ED for cellulitis, r/o sepsis. He currently resides at [facility]. Chronic wounds to bitlateral legs. Ablation to wound about 2 weeks ago ultimately developing redness to affected leg. Plan to dc to [facility] when medically cleared for discharge. CM to follow. Date Signed: 01/20/2018 04:13 PM Electronically Signed By:Aide Green RN
--- NOTE | 2018-01-20 17:59 | WOCRNPDOC ---
WOCRN Advanced Assessment Note - Skin Integrity Problem, Advanced Assess Left Posterior Lower Leg Venous Stasis Ulcer Dressing Type: Open to Air (when assessed) Exudate Amount: Minimal Exudate Color: Reddish/Yellow Exudate Characteristic(s): Serosanguinous Joyce Wound Tissue: Erythema, Swollen, Hemosiderin Staining, Venous Dermatitis Joyce Wound Swelling: Moderate Wound Bed Color: Red, Yellow Wound Bed Constitution: Granulation Tissue, Red/P[place]all - Non Granular Tissue Wound Edges: Irregular Site Odor: None Site Measurement - Head-to-Toe Length X Width X Depth (cm): [id number] Peripheral Edema Location & Description: +1, bilateral, pitting Skin Integrity Problem Comment: Healing venous stasis wound on patient's L posterior lower leg, for which he has been seen at the outpatient wound clinic. He underwent an ablation in this extremity last month, and reports wound and edema improved since that time. Venous dermatitis throughout this extremity. Will have nursing apply a dressing to the wound, then apply Spandagrip compression stockings to help w/ edema.
--- NOTE | 2018-01-20 19:39 | GCON ---
[f rep st] CONSULTATION INFECTIOUS DISEASES CONSULTATION DATE OF CONSULTATION: 01/20/2018 REFERRING PHYSICIAN: Suzie Woodard MD REASON FOR CONSULTATION: Left lower extremity cellulitis. CHIEF COMPLAINT: Pain, redness and swelling of the left thigh. HISTORY OF PRESENT ILLNESS: This is a 67-year-old male with a past medical history significant for chronic venous stasis with dermatitis, dyslipidemia, hypertension, who came in complaining of increasing redness, swelling, and pain for the past 4 days. He states it started this past Friday with some increase in redness of his lower thigh, and in the last couple of days, it has increased in distribution toward the groin. He states that he denied any fevers or shaking chills, although yesterday he had vomiting and did not feel well. He states that he still has some areas that there is pain, and it is not worse than yesterday. He states that the area of redness is the same as yesterday, and swelling on the inner thigh is about the same as well. He was given a dose of vancomycin in the ER, and then switched to Ancef when he was admitted. Thus far, he has received 2 doses. He is only partially elevating the leg, but not above the level of the hip. Overall, he feels much better today than yesterday. PAST MEDICAL HISTORY: He did have a laser ablation of the lesser saphenous vein around January 06. Procedure note was reviewed. REVIEW OF SYSTEMS: GENERAL: Denied any fever or shaking chills. HEAD: No headaches. EYES: No change in vision. ENT: No sore throat, difficulty swallowing, ear pain or drainage. He does complain of dry mouth presently. CARDIOVASCULAR: Denies any chest pain or rapid heartbeat. RESPIRATORY: No shortness of breath, cough, or sputum production. ABDOMEN: Currently, no nausea, vomiting, abdominal pain, or diarrhea. : No dysuria or hematuria. He denies any penile pain or scrotal pain. EXTREMITIES: Chronic lower extremity edema. MUSCULOSKELETAL: Denies any joint pains or muscle aches. SKIN: Chronic venous stasis dermatitis bilaterally with multiple superficial abrasions on bilateral lower legs. Rest of 10-point review of systems essentially negative except as above. PAST MEDICAL HISTORY: Significant for hypertension, dyslipidemia, obstructive sleep apnea, chronic venous stasis dermatitis. PAST SURGICAL HISTORY: None. He had a laser ablation of the lesser saphenous vein on January 06, 2018. ALLERGIES: No known drug allergies. SOCIAL HISTORY: He is a nonsmoker. Does not drink alcohol. He lives at [facility]. FAMILY HISTORY: Reviewed and found to be noncontributory. PHYSICAL EXAMINATION: VITAL SIGNS: Temperature current 36.8, T-max 37.4, pulse is 68, blood pressure 116/67, respiratory rate is 16, saturation 90% on 1 L O2 via nasal cannula. GENERAL: Patient is resting in bed, in no acute respiratory distress. Awake, alert, oriented x3. HEENT: Head is normocephalic , atraumatic. Eyes without conjunctival injection or petechiae noted. Pupils are equally round, reactive to light. Oropharynx is clear. There is no posterior erythema or thrush. CARDIOVASCULAR: S1, S2. Regular rate and rhythm. No obvious murmurs appreciated. RESPIRATORY: Clear to auscultate bilaterally. No rhonchi or rales appreciated. ABDOMEN: Obese. Positive bowel sounds in all quadrants. Soft, nontender, nondistended. EXTREMITIES: Lower extremity edema bilaterally with left greater than right. Chronic venous stasis dermatitis bilateral lower extremities, left greater than right, with mild superficial skin tears of bilateral legs. Erythema noted from the knee up to close to the groin. Groin and perineum not involved. He has some swelling mostly on the inner thigh and close to posterior knee with induration there. Tenderness is felt mostly medial thigh extending up toward the groin. The area of erythema was demarcated by me today. SKIN: Warm to touch, but not hot. LABORATORY DATA: White blood cell count is 14.0, down from 18.0. Hemoglobin 9.7, platelets are 267, neutrophil count is 85%. Venous lactic acid 1.8. Sodium 140, potassium 4.1, chloride 108, bicarb 25, BUN is 33. Creatinine is 1.3, down from 1.8. Glucose is 103. Blood cultures x2 sets are pending. Chest x-ray done on admission was reviewed by me. Images show moderate cardiomegaly. No obvious infiltrate. ASSESSMENT: Left lower extremity cellulitis. PLAN: Clinical history and exam findings, I feel this is most likely consistent with a streptococcal infection, although staphylococcus could be involved. There is no evidence of any obvious abscess at this point. I would recommend keeping a close eye on his medial thigh and posterior knee area. I discussed the importance of elevation of the lower extremity. We will continue with Ancef therapy for now. Area of erythema was demarcated so as to better follow his clinical course. If it continues to spread, we will then make adjustments in his anti-microbial therapy. We will continue to follow labs. Care was coordinated with the surgical team earlier today. Thank you very much for the opportunity to care for your patient in consultation. /[id number]/MODL MTDD
--- NOTE | 2018-01-20 22:00 | SOAPPROG ---
SOAP Progress Note Assessment/Plan: Assessment: 67 year old well known to wound care team Worsening cellulitus Appreciate ID Dictation pending Plan: 01/20/18 21:59 Objective: Vital Signs Temp Pulse Resp BP Pulse Ox 36.3 C 74 18 112/67 93 01/20/18 19:57 01/20/18 19:57 01/20/18 19:57 01/20/18 19:57 01/20/18 19:57 Laboratory Results 01/20/18 04:25 01/20/18 04:25 01/19/18 01/20/18 01/21/18 05:59 05:59 05:59 Intake Total 941 871 Balance 941 871 PT 16.1 SEC (12.0-15.0) H 01/19/18 18:35 INR 1.27 (0.83-1.16) H 01/19/18 18:35 ICD10 Worksheet Patient Problems: Problems Problem Status Onset Cellulitis Acute Sepsis Acute Chest pain Acute chronic disease [facility]/transitional care Acute
[2018-01-20] MEDS: INSULIN GLARGINE 100 UNITS/ML UNIT SC SCH (22:21)
[2018-01-20] MEDS: ATORVASTATIN CALCIUM 40 MG TAB PO SCH (22:22)
[2018-01-21 05:01] LABS: PLATELET COUNT 290 10^3/uL (150-400)
[2018-01-21] MEDS: NS 1,000 ML IV SCH (05:03)
[2018-01-21] MEDS: ceFAZolin 2 GM/SWFI 2 GM/20 ML SYR IVP SCH ×3 (05:04→21:36)
[2018-01-21] MEDS: oxyCODONE IR 5 MG TAB PO PRN ×2 (05:06→20:07)
--- NOTE | 2018-01-21 06:01 | GCON ---
[f rep st] CONSULTATION DATE OF CONSULTATION: 01/20/2018 CHIEF COMPLAINT: Left lower extremity cellulitis. HISTORY OF PRESENT ILLNESS: The patient is a 67-year-old man, well known to our service [facility]. He has chronic venous stasis and a venous leg ulcer of the left lat eral leg. He underwent endovascular laser ablation by Dr. Zahraa Kwan approximately 2 weeks ago of the l dominic saphenous vein. He developed erythema on Friday of last week, which he monitored; however, it became more vibrant and extended proximally up his leg toward his groin. It is very tender. His low er leg has also increased in size and has opened up and begun draining more. He denies fever, just g enerally overall feels sick. Since admission, he was started on IV Ancef with improvement of his sym ptoms. PAST MEDICAL HISTORY: Chronic venous insufficiency, hyperlipidemia, obstructive sleep apnea, hyperte nsion, coronary artery disease. ALLERGIES: No known drug allergies. SOCIAL HISTORY: He lives at [facility]. He denies tobacco, alcohol or recreational drug use. FAMILY HISTORY: Noncontributory to wound. REVIEW OF SYSTEMS: 10-point review of systems negative aside from HPI. PHYSICAL EXAMINATION: GENERAL: Well-developed, well-nourished man, obese, in no acute distress. HE ENT: Normocephalic, atraumatic. No hearing deficits. Pupils equal and round. No scleral icterus. Mucous membranes moist. NECK: Trachea midline. RESPIRATORY: No increased work of breathing. CAR DIOVASCULAR: [place] edema of left lower extremity 2+, although this is stable compared to his outpati ent visits. He has significant edema of the left medial thigh associated with tenderness and erythem a. SKIN: The wound on the left lateral lower extremity was not measured, however, there is 100% hea lthy granulation tissue in the base. There are scattered areas of the distal lower extremity where t he skin has opened and the wound is draining. He did not have dramatic erythema of the lower extremi ty distal to the knee. PSYCH: Mood and affect normal. NEURO: Grossly intact. IMPRESSION AND PLAN: A 67-year-old man with known venous insufficiency of the left lower extremity a nd associated venous leg ulcer. We have ordered a stat ultrasound of the left medial thigh to evalua te the area of worse erythema and cellulitis to evaluate for underlying abscess. He will be seen by Infectious Disease for tailoring of his broad-spectrum antibiotics. The cellulitis appears streptoco ccus in etiology and he is currently on intravenous Ancef. Appreciate hospitalist management of saray rbidities. We have also spoken with the wound care nurse to evaluate for dressing changes. We will continue to follow through this hospital admission. The patient was additionally seen by Dr. Zenaida smith. /[id number]/MODL
[2018-01-21] MEDS: traMADol 50 MG TAB PO SCH ×3 (08:48→21:36)
[2018-01-21] MEDS: ENOXAPARIN 40 MG/0.4 ML SYR SC SCH ×2 (08:49→20:08)
[2018-01-21] MEDS: ASPIRIN 81 MG CHEWABLE TAB PO SCH (08:49)
--- NOTE | 2018-01-21 11:22 | HOSPPROG ---
Hospitalist Progress Note Assessment/Plan: DIAGNOSES: -acute sepsis with metabolic acidosis and organ failure, sepsis appears resolved -cellulitis of leg with chronic wound in the leg; history of chronic stasis related edema of this leg with ongoing skin wounds and recurrent infections -acute renal failure due to above * Improved and now approaching baseline -normocytic anemia which is worse than noted last month, no lab data going back further than that for comparison * change may just be due to his acute infectious illness at this time; number stable at this time -history of recent abnormal treadmill stress test, patient currently declining coronary angiography so far -obesity PLANS: Continue current antibiotics and follow closely for resolution, consider changes if does not resolve At this point will stop hydration, and follow renal function very closely Wound care for leg, continue elevation of legs Follow hemoglobin to make sure it is not getting worse Check iron levels Follow closely for any signs of cardiac or related symptoms DVT prophylaxis SUBJECTIVE: Still very little change in discomfort but a little bit less pain than yesterday No fever symptoms Eating well no nausea, no dyspnea OBJECTIVE Vitals reviewed: Blood pressure and pulse now normalized, no fever Exam: alert oriented skin warm dry color ok resps not labored lungs clear BSs heart regular abd soft nondistended nontender, bowel sounds present limbs still with marked edema throughout his left greater than right lower extremity, though now with compression sleeves on both legs there is some decreased compared to yesterday in the edema below the knees. In the left lower thigh and knee area the cellulitis still quite intense although around the border just above the there is a small area with the redness has receded some. It remains otherwise warm and a little tender but no fluctuance or necrosis or blistering. On the calf pretibial and ankle areas on the left there is notably decreased scale present after wound care yesterday, still with significant cellulitis. Again no evidence of abscess or necrosis anywhere. iv site ok Laboratory data: White blood cell count still high at 9.8 but is improved from yesterday, hemoglobin is stable at 10 Renal function continues to improve and is probably very close to his baseline at this point Sugars remain in good range overall Microbiology data: No growth in blood cultures to date Objective: Vital Signs Temp Pulse Resp BP Pulse Ox 36.4 C 67 16 114/64 91 L 01/21/18 09:00 01/21/18 09:00 01/21/18 09:00 01/21/18 09:00 01/21/18 09:00 Laboratory Results 01/21/18 04:45 01/21/18 04:45 01/20/18 01/21/18 01/22/18 06:59 06:59 06:59 Intake Total 941 2242 Balance 941 2242 PT 16.1 SEC (12.0-15.0) H 01/19/18 18:35 INR 1.27 (0.83-1.16) H 01/19/18 18:35 ICD10 Worksheet Patient Problems: Problems Problem Status Onset Cellulitis Acute Sepsis Acute Chest pain Acute chronic disease [facility]/transitional care Acute
[2018-01-21] MEDS: BISOPROLOL FUMARATE 5 MG TAB PO SCH (12:54)
--- NOTE | 2018-01-21 14:52 | SOAPPROG ---
SOAP Progress Note Assessment/Plan: Assessment: 67 year old well known to wound care team Cellulitus improved No abscess or DVT on ultrasound Appreciate ID Will follow Plan: 01/20/18 21:59 01/21/18 14:51 Objective: Vital Signs Temp Pulse Resp BP Pulse Ox 36.4 C 68 16 115/66 93 01/21/18 11:48 01/21/18 11:48 01/21/18 11:48 01/21/18 11:48 01/21/18 11:48 Laboratory Results 01/21/18 04:45 01/21/18 04:45 01/20/18 01/21/18 01/22/18 05:59 05:59 05:59 Intake Total 941 2242 Balance 941 2242 PT 16.1 SEC (12.0-15.0) H 01/19/18 18:35 INR 1.27 (0.83-1.16) H 01/19/18 18:35 ICD10 Worksheet Patient Problems: Problems Problem Status Onset Cellulitis Acute Sepsis Acute Chest pain Acute chronic disease [facility]/transitional care Acute
--- NOTE | 2018-01-21 15:07 | PCMIDPN ---
Assessment/Plan: Assessment/Plan: * Left lower extremity cellulitis with underlying venous insufficiency: Erythema without significant improvement with decreasing white blood cell count. Appearance suggestive of beta-hemolytic streptococcal etiology. No clinical findings to suggest abscess. Continue cefazolin and lower extremity elevation. Anticipate cellulitis will be slow to resolve based on appearance an underlying venous insufficiency. Clinical findings and plan discussed with patient. 01/21/18 15:04 Subjective: Patient with persistent left medial thigh pain. Is elevating left lower extremity. Objective: Vital Signs Temp Pulse Resp BP Pulse Ox 36.4 C 68 16 115/66 93 01/21/18 11:48 01/21/18 11:48 01/21/18 11:48 01/21/18 11:48 01/21/18 11:48 Laboratory Results 01/21/18 04:45 01/21/18 04:45 01/20/18 01/21/18 01/22/18 05:59 05:59 05:59 Intake Total 941 2242 Balance 941 2242 Cefazolin # 2 Blood cultures x2 no growth Ultrasound without evidence of DVT; occlusive segment related to prior venous ablation present - Physical Exam General Appearance: alert, no apparent distress EENT: No scleral icterus, No thrush Respiratory: lungs clear, No respiratory distress Cardiac/Chest: regular rate, rhythm, systolic murmur (2/6 throughout) Extremities: inflammation (Left medial thigh with sharply demarcated erythema which has minimally extended beyond the margins demarcated laterally; some more edematous areas medially but no fluctuance; sunny quality intermixed; changes of venous insufficiency below knee with stasis dermatitis; erythema does not extend into perineal region) Abdomen: non-tender, No distended ICD10 Worksheet Patient Problems: Problems Problem Status Onset Cellulitis Acute Sepsis Acute Chest pain Acute chronic disease mgmt/transitional care Acute
[2018-01-21] MEDS: ZINC GLUCONATE 50 MG TAB PO SCH (17:17)
[2018-01-21] MEDS: ATORVASTATIN CALCIUM 40 MG TAB PO SCH (20:07)
[2018-01-21] MEDS: INSULIN GLARGINE 100 UNITS/ML UNIT SC SCH (21:24)
[2018-01-22] MEDS: ceFAZolin 2 GM/SWFI 2 GM/20 ML SYR IVP SCH ×3 (06:00→22:15)
--- NOTE | 2018-01-22 08:43 | PCMIDPN ---
Assessment/Plan: Assessment/Plan: * Left lower extremity cellulitis with underlying venous insufficiency: Some recession and fading of erythema with decreasing edema in left medial thigh. Clinical appearance remains suggestive of streptococcal etiology. Continue cefazolin and elevation. Anticipate will likely need IV antibiotics for next several days and resolution with be slow with venous insufficiency. 01/22/18 08:40 Subjective: Patient feels about the same with pain in left medial thigh. No diarrhea. Objective: Vital Signs Temp Pulse Resp BP Pulse Ox 36.6 C 86 18 132/81 H 98 01/22/18 07:30 01/22/18 07:30 01/22/18 07:30 01/22/18 07:30 01/22/18 07:30 Laboratory Results 01/21/18 04:45 01/21/18 04:45 01/21/18 01/22/18 01/23/18 05:59 05:59 05:59 Intake Total 2242 1700 Balance 2242 1700 Cefazolin #3 Blood cultures X 2 no growth - Physical Exam General Appearance: alert, no apparent distress, obese EENT: No scleral icterus, No thrush Respiratory: lungs clear, No respiratory distress Cardiac/Chest: regular rate, rhythm Extremities: inflammation (erythema over left medial thigh less intense with some recession from demarcated lines; more sunny erythema medially with early bullae potentially forming; no fluctuance, tenderness present; no extension to perineum) Abdomen: non-tender, No distended ICD10 Worksheet Patient Problems: Problems Problem Status Onset Cellulitis Acute Sepsis Acute Chest pain Acute chronic disease mgmt/transitional care Acute
[2018-01-22] MEDS: BISOPROLOL FUMARATE 5 MG TAB PO SCH (08:54)
[2018-01-22] MEDS: ASPIRIN 81 MG CHEWABLE TAB PO SCH (08:55)
[2018-01-22] MEDS: traMADol 50 MG TAB PO SCH ×3 (08:55→22:15)
[2018-01-22] MEDS: oxyCODONE IR 5 MG TAB PO PRN ×2 (08:55→20:44)
[2018-01-22] MEDS: ENOXAPARIN 40 MG/0.4 ML SYR SC SCH ×2 (08:55→20:44)
--- NOTE | 2018-01-22 10:37 | HOSPPROG ---
Hospitalist Progress Note Assessment/Plan: DIAGNOSES: -acute sepsis with metabolic acidosis and organ failure, sepsis appears resolved -cellulitis of leg with chronic wound in the leg; history of chronic stasis related edema of this leg with ongoing skin wounds and recurrent infections * Slow improvement continues at this time with antibiotics and elevation and wound care -acute renal failure due to above * Improved and now approaching baseline -chronic severe leg edema with stasis changes, has known venous stasis disease and is being treated for that * However given patient's obesity, hypoxemia, smoking history I strongly suspect pulmonary hypertension and possible right heart disease as well; notably he did have observed sleep apnea during his November hospital stay and he is not being treated for that -normocytic anemia which is worse than noted last month, no lab data going back further than that for comparison * change may just be due to his acute infectious illness at this time; number stable at this time * Real iron deficiency has border line low iron saturation but has mildly elevated ferritin, likely inflammatory -CAD: history of recent abnormal treadmill stress test, patient currently declining coronary angiography so far * Today I reviewed his CT scan of chest from November and he has notable coronary calcifications and I did review this with the patient as well as reviewed his risks of development of ischemic disease or ventricular dysfunction due to coronary disease -lung nodules noted on CT scan in November, he is due at this point for a repeat CT scan per radiology's recommendations as there is question of whether some of that was pneumonia at the time -morbid obesity PLANS: Continue current antibiotics and follow closely for resolution, consider changes if does not resolve At this point will stop hydration, and follow renal function very closely Wound care for leg, continue elevation of legs Will check echocardiogram today to look for pulmonary hypertension, right heart function. Primary goal here is to look for anything we might be able to help with in terms of chronic management of his edema as he has such bad ongoing skin disease I did review the patient's CT scan findings with him and have recommended we do a repeat CT scan at this time, and also that he continue follow closely with Dr. Taylor for further assessment and management of his coronary artery disease ; will repeat his crit renal function tomorrow to be short is stable before actually doing the CT scan is ordered to contrast study Follow closely for any signs of cardiac or related symptoms DVT prophylaxis I reviewed all the above in detail today with Dr. Mendez SUBJECTIVE: Still with discomfort in his legs, notes that the compression stockings to help with this No fever symptoms, no dyspnea or chest discomfort OBJECTIVE Vitals reviewed: Blood pressure and pulse now normalized, no fever Exam: alert oriented skin warm dry color ok resps not labored lungs clear BSs heart regular abd soft nondistended nontender, bowel sounds present limbs still with marked edema throughout his left greater than right lower extremity, and still with marked cellulitis particularly on the medial and posterior aspects of the thigh up into the groin, this is slightly better today , still without evidence of abscess or necrosis. The skin below the knee is no longer cellulitic, wound care has so far here helped reduce the amount of scale , the open areas look good and there is little weeping at this time though some persists iv site ok Microbiology data: No growth in blood cultures to date Reviewing his chart from his November visit he was felt to possibly have a pneumonia although the CT scan findings actually show 1 predominant right lower lobe nodule and the sulcus behind the diaphragm and a couple of other smaller nodules, no obvious diffuse alveolar infiltrate of process other than that. One -month follow-up CT scan was recommended. I reviewed the images of this study and I agree with these findings and recommendations at this time and we are now due for his follow-up scan. Also noted at that time were coronary calcifications and these on my review of the images today are quite obvious in the left anterior and circumflex in particular. Notably his main abnormality on his myocardial perfusion imaging stress study was in the inferior portion of the heart racing be concerned that he may have diffuse disease and may have had more normal looking study at that time due to balanced decreased perfusion. Objective: Vital Signs Temp Pulse Resp BP Pulse Ox 36.6 C 86 18 132/81 H 98 01/22/18 07:30 01/22/18 07:30 01/22/18 07:30 01/22/18 07:30 01/22/18 07:30 Laboratory Results 01/21/18 04:45 01/21/18 04:45 01/21/18 01/22/18 01/23/18 06:59 06:59 06:59 Intake Total 2242 1700 Balance 2242 1700 PT 16.1 SEC (12.0-15.0) H 01/19/18 18:35 INR 1.27 (0.83-1.16) H 01/19/18 18:35 - Time Spent With Patient Time Spent with Patient: greater than 35 minutes Time Spent with Patient: Greater than 35 minutes spent on this patients care, greater than 50% of time spent counseling, educating, and coordinating care regarding the above mentioned plan. ICD10 Worksheet Patient Problems: Problems Problem Status Onset Cellulitis Acute Sepsis Acute Chest pain Acute chronic disease mgmt/transitional care Acute
--- NOTE | 2018-01-22 11:01 | SOAPPROG ---
SOAP Progress Note Assessment/Plan: Assessment: 67 year old well known to wound care team Cellulitus improved - still with erythema but receding. Less tender No abscess or DVT on ultrasound Appreciate ID Will follow Plan: 01/20/18 21:59 01/21/18 14:51 01/22/18 11:00 Objective: Vital Signs Temp Pulse Resp BP Pulse Ox 36.6 C 86 18 132/81 H 98 01/22/18 07:30 01/22/18 07:30 01/22/18 07:30 01/22/18 07:30 01/22/18 07:30 Laboratory Results 01/21/18 04:45 01/21/18 04:45 01/21/18 01/22/18 01/23/18 05:59 05:59 05:59 Intake Total 2242 1700 Balance 2242 1700 PT 16.1 SEC (12.0-15.0) H 01/19/18 18:35 INR 1.27 (0.83-1.16) H 01/19/18 18:35 ICD10 Worksheet Patient Problems: Problems Problem Status Onset Cellulitis Acute Sepsis Acute Chest pain Acute chronic disease [facility]/transitional care Acute
[2018-01-22] MEDS: ZINC GLUCONATE 50 MG TAB PO SCH (18:04)
[2018-01-22] MEDS: ATORVASTATIN CALCIUM 40 MG TAB PO SCH (20:43)
[2018-01-22] MEDS: INSULIN GLARGINE 100 UNITS/ML UNIT SC SCH (22:15)
[2018-01-23] MEDS: ceFAZolin 2 GM/SWFI 2 GM/20 ML SYR IVP SCH ×3 (06:03→21:48)
[2018-01-23] MEDS: ENOXAPARIN 40 MG/0.4 ML SYR SC SCH ×2 (08:01→21:52)
[2018-01-23] MEDS: traMADol 50 MG TAB PO SCH ×3 (08:01→21:51)
[2018-01-23] MEDS: BISOPROLOL FUMARATE 5 MG TAB PO SCH (08:02)
[2018-01-23] MEDS: ASPIRIN 81 MG CHEWABLE TAB PO SCH (08:02)
--- NOTE | 2018-01-23 12:16 | ASMTCMCOM ---
CM Note CM Note Notes: Provided update to Vanessa at [facility]. Plan is still for pt to return there at [place]. DC is still unclear. CM will continue to follow. Date Signed: 01/23/2018 12:15 PM Electronically Signed By:Amber Smith LCSW
--- NOTE | 2018-01-23 14:49 | PCMIDPN ---
Assessment/Plan: Assessment/Plan: * Left lower extremity cellulitis with underlying venous insufficiency: Cellulitis is improving with decreased intensity and extent of erythema over left medial thigh. Some early desquamation of skin also consistent with resolving cellulitis. Degree of cellulitis still necessitates continued treatment with IV cefazolin. Continue lower extremity elevation. Anticipate patient will need IV antibiotics for at least additional 48 hr or potentially longer for resolution of current clinical findings. 01/23/18 14:47 Subjective: Patient with less thigh pain. No pruritis, rash or diarrhea. Objective: Vital Signs Temp Pulse Resp BP Pulse Ox 36.9 C 70 17 134/69 H 98 01/23/18 07:53 01/23/18 08:02 01/23/18 07:53 01/23/18 08:02 01/23/18 07:53 Laboratory Results 01/21/18 04:45 01/21/18 04:45 01/22/18 01/23/18 01/24/18 05:59 05:59 05:59 Intake Total 1700 1700 1441 Balance 1700 1700 1441 Cefazolin # 4 Blood cultures x2 no growth - Physical Exam General Appearance: alert, no apparent distress EENT: No scleral icterus, No thrush Cardiac/Chest: regular rate, rhythm Extremities: inflammation (Erythema in left medial thigh is significantly less intense with recession from previously demarcated line; some early bulla formation medially; some early desquamation; tenderness persists although less prominent; no fluctuance) Abdomen: non-tender, No distended Skin: other (Bilateral lower extremity venous insufficiency change and stasis dermatitis) ICD10 Worksheet Patient Problems: Problems Problem Status Onset Cellulitis Acute Sepsis Acute Chest pain Acute chronic disease mgmt/transitional care Acute
--- NOTE | 2018-01-23 16:03 | WOCRNPDOC ---
WOCRN Advanced Assessment Note - Skin Integrity Problem, Advanced Assess Coccyx Dressing Type: Open to Air Integumentary Issue Intervention: Barrier Cream Applied (will have nursing apply MAD cream from pharmacy) [place] Wound Tissue: Blanching, Erythema, Raw, Denuded [place] Wound Swelling: Mild Wound Bed Color: Red Wound Bed Constitution: Red/Warm [place] - Non Granular Tissue Site Measurement - Head-to-Toe Length X Width X Depth (cm): 3.8cmx0.3cmx0.1cm Skin Integrity Problem Comment: Linear, partial-thickness split in skin directly over coccyx, appearance consistent w/ intertriginous dermaitis r/t excessive moisture. Denuded, raw skin throughout intergluteal cleft, extending down onto scrotum, w/ satellite lesions indicative of fungal involvement. Obtained order for clotrimazole/zinc/lidocaine cream from pharmacy to be applied BID and PRN.
[2018-01-23] MEDS ORDERED: IOPAMIDOL (ISOVUE-300) 100 ML BTL ONE (16:23)
[2018-01-23] MEDS: ZINC GLUCONATE 50 MG TAB PO SCH (17:15)
--- NOTE | 2018-01-23 17:19 | SOAPPROG ---
SOAP Progress Note Assessment/Plan: Assessment/Plan: 67yo M with chronic LLE venous leg ulcer admitted with cellulitis IV antibiotics per ID - appreciate input. Cellulitus improved - still with erythema but receding. Less tender, less swollen today No abscess or DVT on ultrasound Dressing change by public relations coordinator - rec HFB ready to wound and spandigrip to BLE for compression Will continue to follow. Additionally seen by Dr. Mendez S: less pain today. No new complaints O: Sitting on edge of bed, comfortable, no acute distress No increased work of breathing Bilateral lower extremity evidence of venous stasis Left lateral leg dressing in place Left medial thigh erythema receding from marked line, less indurated and edematous. Tender to palpation Objective: Vital Signs Temp Pulse Resp BP Pulse Ox 37.0 C 71 15 139/70 H 99 01/23/18 17:09 01/23/18 17:09 01/23/18 17:09 01/23/18 17:09 01/23/18 17:09 Laboratory Results 01/21/18 04:45 01/21/18 04:45 01/22/18 01/23/18 01/24/18 05:59 05:59 05:59 Intake Total 1700 1700 1441 Balance 1700 1700 1441 PT 16.1 SEC (12.0-15.0) H 01/19/18 18:35 INR 1.27 (0.83-1.16) H 01/19/18 18:35 ICD10 Worksheet Patient Problems: Problems Problem Status Onset Cellulitis Acute Sepsis Acute Chest pain Acute chronic disease mgmt/transitional care Acute
--- NOTE | 2018-01-23 19:14 | HOSPPROG ---
Hospitalist Progress Note Assessment/Plan: DIAGNOSES: -acute sepsis with metabolic acidosis and organ failure, sepsis appears resolved -cellulitis of leg with chronic wound in the leg; history of chronic stasis related edema of this leg with ongoing skin wounds and recurrent infections * More notable improvement today but still quite a bit of cellulitis particularly in the proximal thigh on the left * Streptococcal infection is suspected but cultures negative so far -acute renal failure due to above * Improved and now probably at baseline -chronic severe leg edema with stasis changes, has known venous stasis disease and is being treated for that * However given patient's obesity, hypoxemia, smoking history I strongly suspect pulmonary hypertension and possible right heart disease as well; notably he did have observed sleep apnea during his November hospital stay and he is not being treated for that -echocardiogram will be helpful -normocytic anemia which is worse than noted last month, no lab data going back further than that for comparison * change may just be due to his acute infectious illness at this time; numbers stable at this time * has border line low iron saturation but has good ferritin level, likely inflammatory as opposed to iron deficiency -lung nodules noted on CT scan in November, * On CT at this time there is good resolution of the largest nodule which was probably due to a pneumonia he was suspected to have at that time. Other smaller adenopathy and lymphadenopathy are unchanged over the past month with indication for repeat CT scan in 12 months -CAD in a diabetic patient * CT scan of chest from November and he has notable coronary calcifications and I did review this with the patient as well as reviewed his risks of development of ischemic disease or ventricular dysfunction due to coronary disease; he is being followed by Dr. Taylor for concern for coronary disease and based on a recent abnormal myocardial perfusion study in the outpatient setting angiography had been recommended to the patient but he had declined so far. I have encouraged the patient to consider continuing evaluation so that he can determine the extent of coronary disease in proper preventive or treatment measures can be taken. I have encouraged the patient to continue follow-up in the outpatient setting with Dr. Taylor * He is on a daily aspirin and statin -diabetes type 2 with adequate control at this time -morbid obesity PLANS: Continue current antibiotics and follow closely for resolution, consider changes if does not resolve At this point will stop hydration, and follow renal function very closely Wound care for leg, continue elevation of legs Will check echocardiogram today to look for pulmonary hypertension, right heart function. Primary goal here is to look for anything we might be able to help with in terms of chronic management of his edema as he has such bad ongoing skin disease I did review the patient's CT scan findings with him and have recommended we do a repeat CT scan at this time, and also that he continue follow closely with Dr. Taylor for further assessment and management of his coronary artery disease ; will repeat his crit renal function tomorrow to be short is stable before actually doing the CT scan is ordered to contrast study Follow closely for any signs of cardiac or related symptoms DVT prophylaxis I reviewed all the above in detail today with Dr. Mendez SUBJECTIVE: Still with discomfort in his legs, notes that the compression stockings to help with this No fever symptoms, no dyspnea or chest discomfort OBJECTIVE Vitals reviewed: Blood pressure and pulse now normalized, no fever Exam: alert oriented skin warm dry color ok resps not labored lungs clear BSs heart regular abd soft nondistended nontender, bowel sounds present limbs today there is more notable improvement in the cellulitis of the left thigh and coronary a though this is still considerable but without evidence of abscess or necrosis. The skin below the knee is no longer cellulitic, wound care has so far here helped reduce the amount of scale, the open areas look good and there is little weeping at this time though some persists iv site ok Laboratory data: Blood sugars remain in good range at this time Microbiology data: No growth in blood cultures to date CT scan of chest was done today and I have reviewed the images. The nodular lesion in the left lower lobe has decreased in size most consistent with new infectious process not consistent with a malignancy. There is still some adenopathy and some tiny nodular disease elsewhere in the lungs for which 6-[address] follow-up is recommended by the radiologist Echocardiogram is pending at this time Objective: Vital Signs Temp Pulse Resp BP Pulse Ox 37.0 C 71 15 139/70 H 99 01/23/18 17:09 01/23/18 17:09 01/23/18 17:09 01/23/18 17:09 01/23/18 17:09 Laboratory Results 01/21/18 04:45 01/21/18 04:45 01/22/18 01/23/18 01/24/18 06:59 06:59 06:59 Intake Total 1700 1700 2441 Balance 1700 1700 2441 PT 16.1 SEC (12.0-15.0) H 01/19/18 18:35 INR 1.27 (0.83-1.16) H 01/19/18 18:35 ICD10 Worksheet Patient Problems: Problems Problem Status Onset Cellulitis Acute Sepsis Acute Chest pain Acute chronic disease [facility]/transitional care Acute
[2018-01-23] MEDS ORDERED: LIDO/ZINC OX/CLOTRIMAZOLE (MAD) 116 GM CREAM TP PRN (19:54)
[2018-01-23] MEDS: LIDO/ZINC OX/CLOTRIMAZOLE (MAD) 116 GM CREAM TP SCH (21:40)
[2018-01-23] MEDS: ATORVASTATIN CALCIUM 40 MG TAB PO SCH (21:51)
[2018-01-23] MEDS: INSULIN GLARGINE 100 UNITS/ML UNIT SC SCH (21:53)
[2018-01-24 05:20] LABS: PLATELET COUNT 327 10^3/uL (150-400)
[2018-01-24] MEDS: ceFAZolin 2 GM/SWFI 2 GM/20 ML SYR IVP SCH ×3 (06:11→21:59)
[2018-01-24] MEDS: ENOXAPARIN 40 MG/0.4 ML SYR SC SCH ×2 (08:22→21:56)
[2018-01-24] MEDS: traMADol 50 MG TAB PO SCH ×3 (08:22→21:54)
[2018-01-24] MEDS: ASPIRIN 81 MG CHEWABLE TAB PO SCH (08:22)
[2018-01-24] MEDS: BISOPROLOL FUMARATE 5 MG TAB PO SCH (08:24)
[2018-01-24] MEDS: LIDO/ZINC OX/CLOTRIMAZOLE (MAD) 116 GM CREAM TP SCH ×2 (08:28→22:41)
[2018-01-24] MEDS ORDERED: BISACODYL 10 MG SUPP PR PRN (12:21)
[2018-01-24] MEDS ORDERED: POLYETHYLENE GLYCOL 3350 17 GM PKT PO PRN (12:21)
[2018-01-24] MEDS ORDERED: MAGNESIUM HYDROXIDE 30 ML UDCUP PO PRN (12:21)
[2018-01-24] MEDS ORDERED: LACTULOSE 20 GM/30 ML UDCUP PO PRN (12:21)
--- NOTE | 2018-01-24 13:33 | HOSPPROG ---
Hospitalist Progress Note Assessment/Plan: # acute cellulitis of left lower extremity- ulderlying vascular insufficiency- appears mildly per improved from previous markings- remains erythematous, weepy with desquamation - continue wound care - continue IV antibiotics - ID/surgery following # acute kidney injury-presumed secondary to sepsis and dehydration-creatinine 1.8-> 0.8 - taking good p.o. no need for ongoing IV fluid resuscitation # acute leukocytosis WBC 18 -> 8 blood cultures-no growth to date- oxygen saturations 95% on 2 L - continue IV cephazolin # lung nodules- visualized on CT scan November 2017 - CT chest(personally reviewed and interpreted) shows stable nodular appearance - repeat CT imaging in 6-12 months # diabetes- blood sugars 81-135 - continue current dosing of glargine # presumed coronary artery disease- based on calcifications visualized on CT - patient to perform angiography with Dr. Taylor in the outpatient setting when medically stable - continue aspirin statin and beta-autumn # acute sepsis- - on admission leukocytosis and organ failure - source secondary to cellulitis- now resolved # anemia of chronic disease- H&H stable # morbid obesity # prophylaxis Lovenox # diet regular # disposition greater than 2 midnights as patient requires ongoing IV antibiotics for cellulitis I have discussed the case with the RN- continue current wound care and IV antibiotics Subjective: No noticeable improvement Objective: Vital Signs Temp Pulse Resp BP Pulse Ox 36.6 C 75 18 141/81 H 95 01/24/18 07:42 01/24/18 08:24 01/24/18 07:42 01/24/18 08:24 01/24/18 07:42 Laboratory Results 01/24/18 05:07 01/24/18 05:07 01/23/18 01/24/18 01/25/18 05:59 05:59 05:59 Intake Total 1700 2541 150 Balance 1700 2541 150 PT 16.1 SEC (12.0-15.0) H 01/19/18 18:35 INR 1.27 (0.83-1.16) H 01/19/18 18:35 - Physical Exam Constitutional: obese Eyes: anicteric sclera Ears, Nose, Mouth, Throat: moist mucous membranes Cardiovascular: regular rate and rhythym Respiratory: no respiratory distress, no rales or rhonchi Gastrointestinal: normoactive bowel sounds Genitourinary: no bladder fullness Skin: other (Marked erythema of the medial aspect of the left leg extending circumferentially on the lower left extremity with Descuamation) Musculoskeletal: No asymmetric calves Neurologic: AAOx3 Psychiatric: interacting appropriately, depressed Lymph, Heme, Immunologic: no cervical LAD ICD10 Worksheet Patient Problems: Problems Problem Status Onset Cellulitis Acute Sepsis Acute Chest pain Acute chronic disease mgmt/transitional care Acute
[2018-01-24] MEDS: ZINC GLUCONATE 50 MG TAB PO SCH (14:59)
--- NOTE | 2018-01-24 15:26 | SOAPPROG ---
SOAP Progress Note Assessment/Plan: Assessment: 67 year old well known to wound care team Cellulitus improved - still with erythema but receding. Less tender. Less indurated No abscess or DVT on ultrasound Appreciate ID Will follow Please use Spandagrip size E on bilateral lower extremities (better for compression and less risk of injury as compared to an kye) Plan: 01/20/18 21:59 01/21/18 14:51 01/22/18 11:00 01/24/18 15:25 Objective: Vital Signs Temp Pulse Resp BP Pulse Ox 36.6 C 75 18 141/81 H 95 01/24/18 07:42 01/24/18 08:24 01/24/18 07:42 01/24/18 08:24 01/24/18 07:42 Laboratory Results 01/24/18 05:07 01/24/18 05:07 01/23/18 01/24/18 01/25/18 05:59 05:59 05:59 Intake Total 1700 2541 150 Balance 1700 2541 150 PT 16.1 SEC (12.0-15.0) H 01/19/18 18:35 INR 1.27 (0.83-1.16) H 01/19/18 18:35 ICD10 Worksheet Patient Problems: Problems Problem Status Onset Cellulitis Acute Sepsis Acute Chest pain Acute chronic disease mgmt/transitional care Acute
--- NOTE | 2018-01-24 15:26 | ECHO ---
[email or web address] [address] [address] Main: [phone] Fax: Transthoracic Echocardiogram Name: JENNIFER CHAUHAN MR#: [id number] Study Date: 01/24/2018 Study Time: 02:01 PM Date of : 1950 Age: 67 year(s) Height: 175.3 cm (69 in.) Weight: 122.92 kg (271 lb.) BSA: 2.35 m2 Gender: Male Examination: Echo Indication: ?Pulmonary hypertension Image Quality: Technically Difficult Contrast: Requested by: Georges Manley BP: 141 mmHg/81 mmHg Heart Rate: Rhythm: Indication: ?Pulmonary hypertension Procedure Staff Block Sorter: Tara Vu [facility] Reading Physician: Martín Heller MD Requesting Provider: Conclusions: Mild concentric LV hypertrophy. Normal global systolic LV function. EF is 66 %. Normal RV function. Trivial mitral valve regurgitation. No mitral stenosis is present. The aortic valve is tri-leaflet and functions normally. The tricuspid valve is normal in appearance and function. There is no tricuspid valve regurgitation. Pulmonary artery pressure is not obtained due to inadequate TR jet. There is no previous echocardiogram for comparison. Measurements: Chambers Valvular Assessment AV/MV Valvular Assessment TV/PV Normal Normal Normal Name Value Range Name Value Range Name Value Range Ao Chelsey (MM): 3.5 cm (2.2 cm-3.7 AV Vmax: 1.92 m/s (1 m/s-1.7 PV Vmax: 1.05 m/s (0.6 m/s-0.9 cm) m/s) m/s) IVSd (2D): 1.4 cm (0.6 cm-1.1 AV maxP mmHg ( - ) PV PGmax: 4 mmHg ( - ) cm) LVOT Vmax: 0.86 m/s (0.7 m/s-1.1 LVDd (2D): 4.8 cm (4.2 cm-5.9 m/s) cm) MV E Vmax: 0.99 m/s ( - ) LVDs (2D): 3.0 cm (2.1 cm-4 MV A Vmax: 0.84 m/s ( - ) cm) MV E/A: 1.18 ( - ) LVPWd (2D): 1.2 cm (0.6 cm-1 cm) LVEF (2D): 66 (>=54 %) Continued Measurements: Valvular Assessment AV/MV Patient: JENNIFER CHAUHAN Study Date: 01/24/2018 Page 1 of 2 02:01 PM Name Value MV DecTime: 225 m/s Additional Vessels Name Value Ao Ascendin.3 cm Findings: Left Ventricle: Normal size left ventricle. Mild concentric LV hypertrophy. Normal global systolic LV function. EF is 66 %. Cannot rule out wall motion abnormalities due to poor acoustical window. Right Ventricle: Normal size right ventricle. Normal RV function. Left Atrium: The left atrium is normal in size. Right Atrium: The right atrium is normal in size. Mitral Valve: The mitral valve is normal in appearance and function. Trivial mitral valve regurgitation. No mitral stenosis is present. Aortic Valve: The aortic valve is tri-leaflet and functions normally. Aortic sclerosis is present. There is no aortic valve regurgitation. No aortic valve stenosis is present. Tricuspid Valve: The tricuspid valve is normal in appearance and function. There is no tricuspid valve regurgitation. Pulmonary artery pressure is not obtained due to inadequate TR jet. Pulmonic Valve: The pulmonic valve is normal in appearance and function. Trivial pulmonic valve regurgitation. Aorta: The aorta is normal. Normal size aortic root measuring 3.5 cm. Normal size ascending aorta measuring 3.3 cm. IVC: The IVC is not well visualized. Pericardium: No pericardial effusion. There is pericardial fat. Exam Comments: Patient could not turn due to left leg infection; no apical window.. (No Signature Object) Patient: JENNIFER CHAUHAN Study Date: 01/24/2018 Page 2 of 2 02:01 PM [id number]
[2018-01-24] MEDS: ATORVASTATIN CALCIUM 40 MG TAB PO SCH (21:55)
[2018-01-24] MEDS: SENNOSIDES/DOCUSATE SODIUM TAB PO SCH (21:55)
[2018-01-24] MEDS: INSULIN GLARGINE 100 UNITS/ML UNIT SC SCH (21:56)
[2018-01-25] MEDS: ceFAZolin 2 GM/SWFI 2 GM/20 ML SYR IVP SCH ×2 (06:20→14:22)
[2018-01-25] MEDS: BISOPROLOL FUMARATE 5 MG TAB PO SCH (08:23)
[2018-01-25] MEDS: ASPIRIN 81 MG CHEWABLE TAB PO SCH (08:24)
[2018-01-25] MEDS: traMADol 50 MG TAB PO SCH ×2 (08:25→16:29)
[2018-01-25] MEDS: SENNOSIDES/DOCUSATE SODIUM TAB PO SCH ×2 (08:26→20:39)
[2018-01-25] MEDS: ENOXAPARIN 40 MG/0.4 ML SYR SC SCH ×2 (08:27→20:38)
[2018-01-25] MEDS: LIDO/ZINC OX/CLOTRIMAZOLE (MAD) 116 GM CREAM TP SCH ×2 (09:39→20:39)
[2018-01-25] MEDS: oxyCODONE IR 5 MG TAB PO PRN (09:48)
[2018-01-25] MEDS ORDERED: MAGNESIUM CITRATE 300 ML BOTTLE PO ONE (10:53)
--- NOTE | 2018-01-25 11:13 | SOAPPROG ---
SOAP Progress Note Assessment/Plan: Assessment: 67 year old well known to wound care team - admitted for cellulitus Was in bathroom this am I dropped off additional SpandaGrip E compression socks for him Plan: 01/20/18 21:59 01/21/18 14:51 01/22/18 11:00 01/24/18 15:25 01/25/18 11:12 Objective: Vital Signs Temp Pulse Resp BP Pulse Ox 36.8 C 70 16 136/87 H 2 L 01/25/18 07:09 01/25/18 08:23 01/25/18 07:09 01/25/18 08:23 01/25/18 07:09 Laboratory Results 01/24/18 05:07 01/24/18 05:07 01/24/18 01/25/18 01/26/18 05:59 05:59 05:59 Intake Total 8141 710 Balance 2541 710 PT 16.1 SEC (12.0-15.0) H 01/19/18 18:35 INR 1.27 (0.83-1.16) H 01/19/18 18:35 ICD10 Worksheet Patient Problems: Problems Problem Status Onset Cellulitis Acute Sepsis Acute Chest pain Acute chronic disease [facility]/transitional care Acute
--- NOTE | 2018-01-25 14:00 | PCMIDPN ---
Assessment/Plan: Assessment/Plan: 1. Left thigh cellulitis; - slowly improving and much btter than several days ago -continue with LE elevation - continue with in ancef for now. probably still 1-2 days more then can switch to orals. -will reassess tomorrow for ongoing iv needs -labs improved blood cx ngtd meds ancef 2g q8- Subjective: afebrile. feeling better. less tenderness and swelling. denies sob, abd pain or diarrhea. Objective: Vital Signs Temp Pulse Resp BP Pulse Ox 36.8 C 70 16 136/87 H 2 L 01/25/18 07:09 01/25/18 08:23 01/25/18 07:09 01/25/18 08:23 01/25/18 07:09 Laboratory Results 01/24/18 05:07 01/24/18 05:07 01/24/18 01/25/18 01/26/18 05:59 05:59 05:59 Intake Total 2541 710 Balance 2541 710 - Physical Exam General Appearance: alert, no apparent distress Respiratory: lungs clear Cardiac/Chest: regular rate, rhythm Extremities: swelling Abdomen: normal bowel sounds, non-tender, soft, No distended Skin: erythema (Left thigh erythema improved from earlier this week. swelling on medial aspect has started to improve. wrinkling noted. some dependent swelling remeains on posterior thigh. less tender. ) ICD10 Worksheet Patient Problems: Problems Problem Status Onset Cellulitis Acute Sepsis Acute Chest pain Acute chronic disease mgmt/transitional care Acute
--- NOTE | 2018-01-25 14:26 | HOSPPROG ---
Hospitalist Progress Note Assessment/Plan: # acute cellulitis of left lower extremity- underlying vascular insufficiency- compression socks in place appears unchanged overnight- remains erythematous, weepy with desquamation - continue wound care - continue IV antibiotics - ID/surgery following # Acute constipation - patient several days out from last BM - cont bowel regimen - magnesium citrate x 1 # acute kidney injury-presumed secondary to sepsis and dehydration-creatinine 1.8-> 0.8 - taking good p.o. no need for ongoing IV fluid resuscitation # acute leukocytosis WBC 18 -> 8 blood cultures-no growth to date- oxygen saturations 95% on 2 L - continue IV cephazolin # lung nodules- visualized on CT scan November 2017 - CT chest(personally reviewed and interpreted) shows stable nodular appearance - repeat CT imaging in 6-12 months # diabetes- blood sugars 106-211 - continue current dosing of glargine # presumed coronary artery disease- based on calcifications visualized on CT - patient to perform angiography with Dr. Taylor in the outpatient setting when medically stable - continue aspirin statin and beta-autumn # acute sepsis- - on admission leukocytosis and organ failure - source secondary to cellulitis- now resolved # anemia of chronic disease- H&H stable # morbid obesity # prophylaxis Lovenox # diet regular # disposition greater than 2 midnights as patient requires ongoing IV antibiotics for cellulitis I have discussed the case with the RN- we will give magnesium citrate today for prolonged constipation Subjective: denies abd pain Objective: Vital Signs Temp Pulse Resp BP Pulse Ox 36.8 C 70 16 136/87 H 2 L 01/25/18 07:09 01/25/18 08:23 01/25/18 07:09 01/25/18 08:23 01/25/18 07:09 Laboratory Results 01/24/18 05:07 01/24/18 05:07 01/24/18 01/25/18 01/26/18 05:59 05:59 05:59 Intake Total 2541 710 Balance 2541 710 PT 16.1 SEC (12.0-15.0) H 01/19/18 18:35 INR 1.27 (0.83-1.16) H 01/19/18 18:35 - Physical Exam Constitutional: chronically ill appearing, obese Eyes: anicteric sclera Ears, Nose, Mouth, Throat: moist mucous membranes Cardiovascular: regular rate and rhythym Respiratory: no respiratory distress Gastrointestinal: normoactive bowel sounds Genitourinary: no bladder fullness Skin: other (weeping cellulitis of left leg) Musculoskeletal: No asymmetric calves Neurologic: AAOx3 Psychiatric: interacting appropriately Lymph, Heme, Immunologic: no cervical LAD ICD10 Worksheet Patient Problems: Problems Problem Status Onset Cellulitis Acute Sepsis Acute Chest pain Acute chronic disease mgmt/transitional care Acute
--- NOTE | 2018-01-25 15:54 | ASMTCMCOM ---
CM Note CM Note Notes: Per RN pt still receiving IV ABX and wound care. D/C plan is still to return to [facility] when medically cleared to d/c. Date Signed: 01/25/2018 03:54 PM Electronically Signed By:PAYAL Johansen
[2018-01-25] MEDS: ZINC GLUCONATE 50 MG TAB PO SCH (16:30)
[2018-01-25] MEDS: ATORVASTATIN CALCIUM 40 MG TAB PO SCH (20:38)
[2018-01-25] MEDS: INSULIN GLARGINE 100 UNITS/ML UNIT SC SCH (20:38)
[2018-01-26] MEDS: traMADol 50 MG TAB PO SCH ×4 (00:16→21:25)
[2018-01-26] MEDS: ceFAZolin 2 GM/SWFI 2 GM/20 ML SYR IVP SCH ×4 (00:17→21:04)
[2018-01-26] MEDS: ASPIRIN 81 MG CHEWABLE TAB PO SCH (11:11)
[2018-01-26] MEDS: ENOXAPARIN 40 MG/0.4 ML SYR SC SCH ×2 (11:17→21:28)
[2018-01-26] MEDS: BISOPROLOL FUMARATE 5 MG TAB PO SCH (11:18)
[2018-01-26] MEDS: LIDO/ZINC OX/CLOTRIMAZOLE (MAD) 116 GM CREAM TP SCH ×2 (11:19→21:24)
--- NOTE | 2018-01-26 11:26 | SOAPPROG ---
SOAP Progress Note Assessment/Plan: Assessment/Plan: 67yo M with chronic LLE venous leg ulcer admitted with cellulitis IV antibiotics per ID - appreciate input. Cellulitus improving No abscess or DVT on ultrasound Dressing change by drainlayer - rec HFB ready to wound and spandigrip to BLE for compression Will follow peripherally. Please let us know if any acute surgical/wound issues arise. Discussed with Dr. Mendez S: No new complaints. Pain controlled. Legs a little weepy O: Sitting on edge of bed, comfortable, no acute distress No increased work of breathing Bilateral lower extremity evidence of venous stasis Left lateral leg dressing in place Left medial thigh erythema receding from marked line, less indurated and edematous. Non tender to palpation Objective: Vital Signs Temp Pulse Resp BP Pulse Ox 36.6 C 79 18 112/86 H 93 01/26/18 08:21 01/26/18 08:21 01/26/18 08:21 01/26/18 08:21 01/26/18 08:21 Laboratory Results 01/24/18 05:07 01/24/18 05:07 01/25/18 01/26/18 01/27/18 05:59 05:59 05:59 Intake Total 710 850 Balance 710 850 PT 16.1 SEC (12.0-15.0) H 01/19/18 18:35 INR 1.27 (0.83-1.16) H 01/19/18 18:35 ICD10 Worksheet Patient Problems: Problems Problem Status Onset Cellulitis Acute Sepsis Acute Chest pain Acute chronic disease mgmt/transitional care Acute
[2018-01-26] MEDS: SENNOSIDES/DOCUSATE SODIUM TAB PO SCH ×2 (11:31→21:26)
--- NOTE | 2018-01-26 14:49 | PCMIDPN ---
Assessment/Plan: 1. Left thigh cellulitis secondary to chronic venous stasis dermatitis/chronic ulcerations: Continue Ancef as is. I told the patient that he would likely need another 24- 48 hours of hospitalization, then he can likely be discharged back to [facility] to complete a course of IV therapy, perhaps 14 days of Ancef via continuous infusion. I do not feel comfortable transitioning him to oral antibiotics given concern for absorption, body habitus, extent of infection, etc. Will need PICC line at some point prior to discharge. 01/26/18 14:48 Subjective: In good spirits. No diarrhea. Once his dressings put back on. Has restless legs. Feels that his left eye is markedly better, and showed me demarcated margins, and recession of erythema. Objective: Ancef 2 g IV q.8 hours day 6. Afebrile Vital Signs Temp Pulse Resp BP Pulse Ox 36.6 C 79 18 112/86 H 93 01/26/18 08:21 01/26/18 08:21 01/26/18 08:21 01/26/18 08:21 01/26/18 08:21 Laboratory Results 01/24/18 05:07 01/24/18 05:07 01/25/18 01/26/18 01/27/18 05:59 05:59 05:59 Intake Total 710 850 Balance 710 850 Blood cultures x2 negative on January 19 Imaging negative for DVT - Physical Exam General Appearance: obese EENT: pharynx normal, No thrush Respiratory: lungs clear Cardiac/Chest: regular rate, rhythm Extremities: other (Bilateral lower extremities with beet red erythema/denuded epithelium with scaling. Quarter-size ulceration posterior left lower extremity with Hydrofera blue in place. Left medial thigh with brick red erythema, no significant tenderness. Not particularly warm. Has receded inside of margins.) Skin: No rash ICD10 Worksheet Patient Problems: Problems Problem Status Onset Cellulitis Acute Sepsis Acute Chest pain Acute chronic disease mgmt/transitional care Acute
[2018-01-26] MEDS: ZINC GLUCONATE 50 MG TAB PO SCH (15:53)
--- NOTE | 2018-01-26 17:08 | HOSPPROG ---
Hospitalist Progress Note Assessment/Plan: # acute cellulitis of left lower extremity- underlying vascular insufficiency- compression dressings in place appears unchanged overnight- remains erythematous, weepy with desquamation- slow to improve - continue wound care - continue IV antibiotics- will need intermediate school teacher IV - ID/surgery following # Acute constipation - patient several days out from last BM - cont bowel regimen - magnesium citrate x 1- repeat tomorrow if no BM # acute kidney injury-presumed secondary to sepsis and dehydration-creatinine 1.8-> 0.8 - taking good p.o. no need for ongoing IV fluid resuscitation # acute leukocytosis WBC 18 -> 8 blood cultures-no growth to date- oxygen saturations 95% on 2 L - continue IV cephazolin # lung nodules- visualized on CT scan November 2017 - CT chest(personally reviewed and interpreted) shows stable nodular appearance - repeat CT imaging in 6-12 months # diabetes- blood sugars 80-211 - continue current dosing of glargine # presumed coronary artery disease- based on calcifications visualized on CT - patient to perform angiography with Dr. Taylor in the outpatient setting when medically stable - continue aspirin statin and beta-autumn # acute sepsis- - on admission leukocytosis and organ failure - source secondary to cellulitis- now resolved # anemia of chronic disease- H&H stable # morbid obesity # prophylaxis Lovenox # diet regular # disposition greater than 2 midnights as patient requires ongoing IV antibiotics for cellulitis I have discussed the case with Dr. Marshall - we will continue IV abx - anticipate a prolonged course outpatient Subjective: had BM yesterday Objective: Vital Signs Temp Pulse Resp BP Pulse Ox 36.6 C 79 18 112/86 H 93 01/26/18 08:21 01/26/18 08:21 01/26/18 08:21 01/26/18 08:21 01/26/18 08:21 Laboratory Results 01/24/18 05:07 01/24/18 05:07 01/25/18 01/26/18 01/27/18 05:59 05:59 05:59 Intake Total 710 850 Balance 710 850 PT 16.1 SEC (12.0-15.0) H 01/19/18 18:35 INR 1.27 (0.83-1.16) H 01/19/18 18:35 - Physical Exam Constitutional: obese Eyes: anicteric sclera Ears, Nose, Mouth, Throat: moist mucous membranes Cardiovascular: regular rate and rhythym Respiratory: no respiratory distress Gastrointestinal: normoactive bowel sounds Genitourinary: no bladder fullness Skin: warm, other (unchanged erythema and desquamation) Musculoskeletal: No asymmetric calves Neurologic: AAOx3 Psychiatric: interacting appropriately Lymph, Heme, Immunologic: no cervical LAD ICD10 Worksheet Patient Problems: Problems Problem Status Onset Cellulitis Acute Sepsis Acute Chest pain Acute chronic disease mgmt/transitional care Acute
[2018-01-26] MEDS: ATORVASTATIN CALCIUM 40 MG TAB PO SCH (21:25)
[2018-01-26] MEDS: INSULIN GLARGINE 100 UNITS/ML UNIT SC SCH (21:27)
[2018-01-27] MEDS: ceFAZolin 2 GM/SWFI 2 GM/20 ML SYR IVP SCH ×2 (05:38→16:10)
--- NOTE | 2018-01-27 08:42 | WOCRNPDOC ---
MELODY Advanced Assessment Note - Skin Integrity Problem, Advanced Assess Left Posterior Lower Leg Venous Stasis Ulcer Dressing Type: Allevyn Life, Hydrofera Blue Ready Dressing Description: Intact Exudate Amount: Scant Integumentary Issue Intervention: Visualized Under Dressing Joyce Wound Tissue: Erythema, Scaly, Hemosiderin Staining, Venous Dermatitis Joyce Wound Swelling: Moderate (+1 edema, close to baseline for this extremity) Wound Bed Constitution: Granulation Tissue (100%) Site Measurement - Head-to-Toe Length X Width X Depth (cm): 3.2gub9jdo8.1cm Skin Integrity Problem Comment: Wound improving, 100% granulation, dimensions smaller than previous assessment. Venous stasis-related skin changes periwound, consistent w/ baseline for this patient. Erythema in L thigh improving, and no c /o pain. Will continue w/ plan of care, Hydrofera Blue and Allevyn, followed by compression using Spandagrip. Patient will d/c to [facility] either today or tomorrow, and should follow-up w/ Dr. Mendez ongoing for wound care and evaluation.
[2018-01-27 09:13] VITALS: BP 114/64
[2018-01-27] MEDS: traMADol 50 MG TAB PO SCH ×2 (10:39→16:10)
[2018-01-27] MEDS: ASPIRIN 81 MG CHEWABLE TAB PO SCH (10:40)
[2018-01-27] MEDS: SENNOSIDES/DOCUSATE SODIUM TAB PO SCH (10:40)
[2018-01-27] MEDS: BISOPROLOL FUMARATE 5 MG TAB PO SCH (10:41)
[2018-01-27] MEDS: ENOXAPARIN 40 MG/0.4 ML SYR SC SCH (10:41)
[2018-01-27] MEDS: LIDO/ZINC OX/CLOTRIMAZOLE (MAD) 116 GM CREAM TP SCH (10:41)
[2018-01-27] MEDS ORDERED: ALTEPLASE 2 MG VIAL IVP PRN (11:34)
[2018-01-27] MEDS ORDERED: LIDOCAINE 1% 300 MG/30 ML SDV ONE (13:16)
--- NOTE | 2018-01-27 14:02 | PCMIDPN ---
Assessment/Plan: Assessment/Plan: 1. Left thigh cellulitis; - slowly improving and much btter than several days ago -continue with LE elevation -labs improved blood cx ngtd - given still slow mprovment, will continue iv ancef at [facility] f0r 10 days. -f/u in office in 7 days. -care coordinated with hospitalist team -for picc line today. - will do interagency form meds ancef 2g q8- Subjective: afebrile. feels better each day. denies sob, abd pain or diarrhea. denies pain involving right thigh or legs. not really elevating legs as much as he could. Objective: Vital Signs Temp Pulse Resp BP Pulse Ox 36.6 C 76 18 114/64 94 01/27/18 09:12 01/27/18 09:12 01/27/18 09:12 01/27/18 09:12 01/27/18 09:12 Laboratory Results 01/24/18 05:07 01/24/18 05:07 01/26/18 01/27/18 01/28/18 05:59 05:59 05:59 Intake Total 850 1750 Balance 850 1750 - Physical Exam General Appearance: alert, no apparent distress Respiratory: lungs clear Cardiac/Chest: regular rate, rhythm Abdomen: normal bowel sounds, non-tender, soft, No distended Skin: erythema (erythema medial thigh prsent, far better than one week ago and some improvment from Friday but slow. still with some edema posteriorly and medially with some induration. non tender. ) ICD10 Worksheet Patient Problems: Problems Problem Status Onset Cellulitis Acute Sepsis Acute Chest pain Acute chronic disease [facility]/transitional care Acute
--- NOTE | 2018-01-27 14:04 | PDIAF ---
- Diagnosis Diagnosis: Left thigh cellulitis Code Status: Full Code - Medication Management Discharge Medications: Medications to Continue on Transfer Aspirin [Aspirin 81mg (*)] 81 mg PO DAILY 08/13/17 [Last Taken 01/19/18] Atorvastatin Calcium [Lipitor 40 mg (*)] 40 mg PO HS 08/13/17 [Last Taken ] Furosemide [Lasix 40 MG (*)] 40 mg PO DAILY 08/13/17 [Last Taken 01/19/18] Acetaminophen [Tylenol 325mg (*)] 650 mg PO Q12 PRN 12/16/17 [Last Taken ] Bisacodyl [Magic Bullet 10 mg] 10 mg ME DAILY PRN 01/19/18 [Last Taken 01/19/18] Bisoprolol Fumarate [Zebeta (*)] 5 mg PO DAILY 01/19/18 [Last Taken 01/19/18] Insulin Detemir [Levemir] 35 unit SQ HS 01/19/18 [Last Taken Unknown] Metformin HCl [Metformin 1000 mg] 1,000 mg PO BIDMEAL 01/19/18 [Last Taken 01/19 08:00] Ondansetron [Ondansetron Odt] 4 mg PO Q4 PRN 01/19/18 [Last Taken 01/19/18 08:00 ] Sennosides/Docusate Sodium [Senna-S Tablet] 2 each PO HS 01/19/18 [Last Taken Unknown] Zinc Gluconate [Zinc] 50 mg PO DAILY@1600 01/19/18 [Last Taken 01/18/18] oxyCODONE IR [Oxycodone Ir (*)] 5 mg PO Q8 PRN 01/19/18 [Last Taken Unknown] traMADol [Ultram 50 mg (*)] 100 mg PO 00,08,16 01/19/18 [Last Taken 01/19/18 08: 00] Fpc Antibiotics: Ancef 2g IV q8 Oil Laboratory Analyst Antibiotic Stop Date: 02/06/18 Discharge Medications: Refer to the Discharge Home Medication list for PRN reason. PICC Care - Routine: Yes - Orders Additional Instructions: Dressing change orders for L posterior lower leg: to be done by metal flooring installer q3 days and PRN. 1) cleanse w/ NS and gauze. 2) apply skin prep to periwound skin. 3) cut piece of Hydrofera Blue Ready to fit wound bed, and apply to wound. 4) cover w/ Mepilex border or Allevyn Life 6x6. Compression stockings to BLE, applied in a.m., removed at HS. RHONDA Harmon - Labs/Radiology CBC w/diff Date: 02/02/18 CMP Date: 02/02/18 Call or Fax Lab and Imaging Results to: Fax to Dr. Oakley- [phone] - Follow Up Care Current Providers and Referrals: Patient,NotPresent [Unknown] - As per Instructions Cali Oakley MD [Medical Doctor] - follow up in 1 week ()
--- NOTE | 2018-01-27 15:22 | PDIAF ---
- Diagnosis Diagnosis: Left thigh cellulitis Code Status: Full Code - Medication Management Discharge Medications: Medications to Continue on Transfer Aspirin [Aspirin 81mg (*)] 81 mg PO DAILY 08/13/17 [Last Taken 01/19/18] Atorvastatin Calcium [Lipitor 40 mg (*)] 40 mg PO HS 08/13/17 [Last Taken ] Furosemide [Lasix 40 MG (*)] 40 mg PO DAILY 08/13/17 [Last Taken 01/19/18] Acetaminophen [Tylenol 325mg (*)] 650 mg PO Q12 PRN 12/16/17 [Last Taken ] Bisacodyl [Magic Bullet 10 mg] 10 mg [place] DAILY PRN 01/19/18 [Last Taken 01/19/18] Bisoprolol Fumarate [Zebeta (*)] 5 mg PO DAILY 01/19/18 [Last Taken 01/19/18] Insulin Detemir [Levemir] 35 unit SQ HS 01/19/18 [Last Taken Unknown] Metformin HCl [Metformin 1000 mg] 1,000 mg PO BIDMEAL 01/19/18 [Last Taken 01/19 08:00] Ondansetron [Ondansetron Odt] 4 mg PO Q4 PRN 01/19/18 [Last Taken 01/19/18 08:00 ] Sennosides/Docusate Sodium [Senna-S Tablet] 2 each PO HS 01/19/18 [Last Taken Unknown] Zinc Gluconate [Zinc] 50 mg PO DAILY@1600 01/19/18 [Last Taken 01/18/18] oxyCODONE IR [Oxycodone Ir (*)] 5 mg PO Q8 PRN 01/19/18 [Last Taken Unknown] Lido/Zinc Ox/Clotrimazole Crm [Moisture Associated Dermatitis Cream] 1 delmy TP BID cream 01/27/18 [Last Taken Unknown] Lido/Zinc Ox/Clotrimazole Crm [Moisture Associated Dermatitis Cream] 1 delmy TP Q4H PRN cream 01/27/18 [Last Taken Unknown] Polyethylene Glycol 3350 [Miralax 17 gm (*)] 17 gm PO DAILY pkt 01/27/18 [Last Taken Unknown] Sennosides/Docusate Sodium [Senokot-S] 1 - 2 tab PO BID tab 01/27/18 [Last Taken Unknown] ceFAZolin [Ancef] 2 gm IV Q8 #24 vial 01/27/18 [Last Taken Unknown] traMADol [Ultram 50 mg (*)] 100 mg PO TID tab 01/27/18 [Last Taken Unknown] Senior Living Antibiotics: Ancef 2g IV q8 Carton Counter Feeder Antibiotic Stop Date: 02/06/18 Discharge Medications: Refer to the Discharge Home Medication list for PRN reason. PICC Care - Routine: Yes - Orders Services needed: Registered Nurse, Physical Therapy Additional Instructions: Dressing change orders for L posterior lower leg: to be done by battery container inspector q3 days and PRN. 1) cleanse w/ NS and gauze. 2) apply skin prep to periwound skin. 3) cut piece of Hydrofera Blue Ready to fit wound bed, and apply to wound. 4) cover w/ Mepilex border or Allevyn Life 6x6. Compression stockings to BLE, applied in a.m., removed at HS. RHONDA Harmon - Labs/Radiology CBC w/diff Date: 02/02/18 CMP Date: 02/02/18 Call or Fax Lab and Imaging Results to: Fax to Dr. Oakley- [phone] - Follow Up Care Current Providers and Referrals: Patient,NotPresent [Unknown] - As per Instructions Cali Oakley MD [Medical Doctor] - follow up in 1 week ()
[2018-01-27] MEDS: ZINC GLUCONATE 50 MG TAB PO SCH (16:10)
--- NOTE | 2018-01-27 16:26 | PDRADPN ---
Radiology Procedure Note Date of Procedure: 01/27/18 Radiologist: Herson Hanson Anesthesia: Local (Specify) Pre-op Diagnosis: central access Post-op Diagnosis: same Indication: venous access Procedure: RUE SL PICC Finding(s): tip of catheter at cavoatrial junction, ok to use Inf/Abcess present in the surg proc area at time of surgery?: No Complications: none
--- NOTE | 2018-01-27 17:57 | GDS ---
[f rep st] DISCHARGE SUMMARY DISCHARGE DIAGNOSIS: Include: 1. Severe left thigh cellulitis. 2. Acute kidney injury secondary to dehydration. 3. Acute leukocytosis secondary to cellulitis. 4. Lung nodules. 5. Diabetes. 6. Presumed coronary artery disease. 7. Sepsis secondary to cellulitis. 8. Anemia of chronic disease. 9. Morbid obesity. HISTORY OF PRESENT ILLNESS: This is a 67-year-old male presenting from his custodial facility with complaints of worsening cellulitis of the left lower extremity. For details of patient's initia l presentation, please see the History and Physical dated 01/20/2018. CONSULTATIVE SERVICES: Include infectious Disease. PROCEDURES: 1. On 01/27/2018, patient had a PICC line placement. 2. On 01/23/2018, patient had a CT of the chest without contrast that shows stable nonspecific pulmo nary nodules. Recommendation for interval imaging in 12 months' time. HOSPITAL COURSE BY ISSUE: 1. Severe left lower extremity cellulitis. The patient has vascular insufficiency of this limb. Blackmon d significant erythema, edema and ultimately desquamation of his lower extremity. He was placed on I V antibiotics. Blood cultures remain no growth at the time of his disposition. Due to his presumed vascular insufficiency and the slow response to antibiotic therapy, patient had a PICC line placed th e day of disposition and will continue on 10 additional days of IV Ancef. He is to be seen by the In fectious Disease specialist in 7 days' time for further decision making related to ongoing IV antibio tics. We have encouraged the patient to continue elevating his lower extremities. His outpatient La six dosing will be re-initiated now that his renal dysfunction has been resolved. He is to continue with PT-supported ambulation when not elevating his lower extremity. 2. Presumed coronary artery disease. Patient had calcifications visualized on imaging. The patient is actively on medications appropriate for coronary artery disease including aspirin, statin, beta b locker. He should continue on these medications. It is recommended that he undergo a risk stratific ation study in the outpatient setting at some point in the near future. 3. Acute kidney injury secondary to dehydration. The patient was aggressively fluid resuscitated, h ad his diuretics held, had normalization of his renal function from a creatinine of 1.8 to 0.8 on the day of disposition. We will resume his low-dose Lasix in the outpatient setting. 4. Morbid obesity. This is certainly complicating his medical health. Do recommend ongoing PT/OT f or this patient post disposition. MEDICATIONS AT TIME OF DISPOSITION: Please reference the med rec printed on 01/27/2018. STUDIES: Pending studies at time of discharge, none. FOLLOWUP APPOINTMENTS: 1. Include with Infectious Disease in 7 days' time before the cessation of his 10-day IV antibiotic course for ongoing decision making related to his antibiotics for cellulitis. 2. With his outpatient primary care for ongoing management of his medical comorbidities. I spent greater than 30 minutes in the planning and coordination of this discharge. /[id number]/MODL
--- NOTE | 2018-01-28 09:06 | ASDISCHSUM ---
Discharge Information Plan Status: Medically Cleared to Leave: Discharge Date:01/27/2018 05:00 PM CM D/C Disposition: ADT D/C Disposition:Intermediate Facility Projected Discharge Date:01/27/2018 11:00 AM Transportation at D/C: Discharge Delay Reason: Follow-Up Date:01/27/2018 11:00 AM Discharge Slot: Final Diagnosis: Placement Information Referral Type:*Usp/SNF Referral ID:[id number] Provider Name:Baldev Ayala/[facility] Address 1:[address] Phone Number: Address 2: Fax Number: [facility]:[place] Selection Factors: State:[place] Patient Contact Information Contact Name:HUNTER Relationship:Sister Address:[address] Work Phone: City:[place] Alternate Phone: [facility]/Zip Code:[place] [address] Email: Financial Information Financial Class:Medicare Primary Plan Desc:MEDICARE INPATIENT Primary Plan Number:[id number] Secondary Plan Desc:MED[place] Secondary Plan Number:[id number] Assessment Information [facility] CM Progress Note CM Note CM Note Notes: Chart reviewed for discharge planning purposes. 67 year old male admitted via ED for cellulitis, r/o sepsis. He currently resides at [facility]. Chronic wounds to bitlateral legs. Ablation to wound about 2 weeks ago ultimately developing redness to affected leg. Plan to dc to [facility] when medically cleared for discharge. CM to follow. Date Signed: 01/20/2018 04:13 PM Electronically Signed By:Aide Green RN [facility] CM Progress Note CM Note CM Note Notes: Provided update to Vanessa at [facility]. Plan is still for pt to return there at DC. DC is still unclear. CM will continue to follow. Date Signed: 01/23/2018 12:15 PM Electronically Signed By:Amber Smith LCSW [facility] CM Progress Note CM Note CM Note Notes: Per RN pt still receiving IV ABX and wound care. D/C plan is still to return to [facility] when medically cleared to d/c. Date Signed: 01/25/2018 03:54 PM Electronically Signed By:PAYAL Johansen Case Management Discharge Plan Note Case Management Discharge Discharge Order Complete? Answers: Yes Patient to Obtain Answers: Other Notes: [facility] Medications Transportation Arranged Answers: Other Notes: [facility] Transport will Pick (Date 01/27/2018 05:00 PM & Time) Faxed Final Orders Answers: Yes Discharge Comments Notes: Patient discharging back to [facility], his LTC facility. Orders/meds/discharge instructions sent to facility. Vanessa from facility organized transport. [facility] Matias to call report. Date Signed: 01/27/2018 03:31 PM Electronically Signed By:Bonita Thurston RN Intervention Information Intervention Type:*IM-Signed Date of Service:01/27/2018 04:52 PM Patient Type:Inpatient Staff Member:Venessa Adames Hours: Discipline: Severity: Comment:
== END 2018-01-27 17:00 | DRG 872 ==
LOC: EDUNIT# → OBSVTOIN 18:44 → F1N 19:50
PROVIDERS: ADMIT Internal Medicine; ATTEND Internal Medicine
PROC: 02HV33Z Insertion of Infusion Device into Superior Vena Cava, Percutaneous Approach (ICD-10-PCS; principal; 2018-01-27)
DX: A41.9 Sepsis, unspecified organism (principal); L03.116 Cellulitis of left lower limb; I87.2 Venous insufficiency (chronic) (peripheral); N17.9 Acute kidney failure, unspecified; E86.0 Dehydration; D63.8 Anemia in other chronic diseases classified elsewhere; E11.9 Type 2 diabetes mellitus without complications; I25.10 Atherosclerotic heart disease of native coronary artery without angina pectoris; K59.00 Constipation, unspecified; R91.1 Solitary pulmonary nodule; I10 Essential (primary) hypertension; G47.33 Obstructive sleep apnea (adult) (pediatric); E78.5 Hyperlipidemia, unspecified; E66.01 Morbid (severe) obesity due to excess calories; Z68.41 Body mass index [BMI] 40.0-44.9, adult; Z87.891 Personal history of nicotine dependence
CPT/HCPCS: 96365; 97116-GP; 97161-GP; 97166-GO; 97530-GO; 97530-GP; 97535-GO; C1751; G0378; G8978-GP-CI; G8978-GP-CJ; G8979-GP-CI; G8987-GO-CK; G8988-GO-CI; J0690; J1650; J1815; J3370; Q9967

== ENCOUNTER 2018-02-02 09:36 | Observation (INO) | payer OTHER, MEDICAID ==
[2018-02-02] MEDS ORDERED: DIAZEPAM 5 MG TAB PO ONE (09:39)
[2018-02-02] MEDS ORDERED: NS 1,000 ML IV ONE (09:39)
[2018-02-02] MEDS ORDERED: ASPIRIN EC 325 MG TAB PO ONE ×2 (09:39→09:41)
[2018-02-02] MEDS ORDERED: diphenhydrAMINE 25 MG CAP PO ONE ×2 (09:39→09:41)
[2018-02-02] MEDS ORDERED: FAMOTIDINE 20 MG TAB PO ONE (09:39)
[2018-02-02] MEDS ORDERED: DIAZEPAM 5 MG TAB ONE (09:41)
[2018-02-02] MEDS ORDERED: FAMOTIDINE 20 MG TAB ONE (09:41)
--- NOTE | 2018-02-02 10:05 | CPEKG ---
Heart Rate: 75 RR Interval: 800 P-R Interval: 184 QRSD Interval: 92 QT Interval: 400 QTC Interval: 447 P Metz: 71 QRS Metz: 37 T Wave Metz: 62 EKG Severity - NORMAL ECG - EKG Impression: SINUS RHYTHM EKG Impression: No significant change from December 16, 2017 Electronically Signed By: Devon Hadley 02-Feb-2018 10:43:03
--- NOTE | 2018-02-02 10:18 | PDHPUP ---
History & Physical Update H&P update statement: This history and physical update is based on an assessment of the patient which was completed after admission or registration (within 24 hours), but prior to the surgery/procedure. pt examined and no changes we will proceed w arm access by my dear friend Dr Zuñiga due to his groin low ext cellulitis which appears more active . Pt has met him and agrees H&P update: changes noted H&P changes: cellulitus in groin / pannus area.
--- NOTE | 2018-02-02 10:19 | PDPROPOC ---
Sedation Plan of Care Sedation Plan of Care: vital signs stable, mental status noted, patient educated of risks, benefits, alternatives, patient can tolerate sedation ASA Classification: ASA 1 Mallampati Score: Class 1 Mallampati Reference Image: Patient passed 3-3-2 rule?: Yes
[2018-02-02] MEDS ORDERED: fentaNYL 100 MCG/2 ML INJ ONE ×3 (10:27→13:07)
[2018-02-02] MEDS ORDERED: VERAPAMIL 5 MG/2 ML VIAL ONE (10:27)
[2018-02-02] MEDS ORDERED: LIDOCAINE 1% 300 MG/30 ML SDV ONE (10:27)
[2018-02-02] MEDS ORDERED: HEPARIN 10,000 UNIT/10 ML MDV (1,000 UNIT/ML) ONE (10:27)
[2018-02-02] MEDS ORDERED: IOPAMIDOL (ISOVUE-370) 150 ML BTL IV ONE (10:28)
[2018-02-02] MEDS ORDERED: MIDAZOLAM 2 MG/2 ML VIAL ONE ×2 (10:28→13:07)
[2018-02-02 10:31] LABS: PLATELET COUNT 396 10^3/uL (150-400)
[2018-02-02 10:39] LABS: INR 1.11 (0.83-1.16); PROTIME(PATIENT) 14.5 SEC (12.0-15.0)
[2018-02-02] MEDS ORDERED: NITROGLYCERIN 1,500 MCG/15 ML VIAL MISC ONE (12:00)
--- NOTE | 2018-02-02 12:43 | CPIP ---
[f rep st] INVASIVE CARDIAC PROCEDURE DATE OF PROCEDURE: 02/02/2018 PROCEDURE: Coronary angiography. INDICATION: 1. Chest pain. 2. Abnormal nuclear stress test with inferolateral ischemia. ACCESS: The patient was prepped and draped in sterile fashion. 1% lidocaine was used to anesthetize the left radial artery. A 5-Cypriot introducer sheath was placed selectively into the left radial ar jaqueline via modified Seldinger technique. A Magic Torque wire was then advanced to the descending aorta and a 5-Cypriot JR4 catheter advanced. A 5-Cypriot JR4 catheter met resistance in the left brachial a rtery. Hand injection demonstrated spasm of the left brachial artery. It was decided to halt angiog lorraine from this region and switch to the right common femoral access site. The right common femoral artery was prepped and draped in sterile fashion. 1% lidocaine was used to anesthetize the inguinal region. A 6-Cypriot introducer sheath was placed selectively into the right common femoral artery via modified Seldinger technique. CORONARY ANGIOGRAPHY: A 6-Cypriot JL4 was advanced to the left main coronary artery and images obtain ed. The left main coronary artery bifurcated into an LAD and circumflex coronary arteries. The left main coronary artery appeared normal. The left anterior descending coronary artery gave rise to 1 p rominent diagonal branch. The left anterior descending coronary artery had a single discrete 40% debora nosis in the mid vessel. The diagonal artery is free of any significant disease. The circumflex cor onary artery was a large vessel and was dominant. The circumflex coronary artery gave rise to 5 OM/p osterolateral branches. The circumflex coronary artery had a mid 20% stenosis present. The branches were free of any significant disease. A 6-Cypriot JR4 was advanced to the right coronary artery and images obtained. The right coronary artery is nondominant. The right coronary artery had a mid 40% stenosis present. LEFT VENTRICULOGRAPHY: Left ventriculography was not performed given difficulty passing catheter acr oss the valve. Previous LVEF was obtained via echocardiography, therefore no further attempts were m eder. LEFT BRACHIAL ARTERY ANGIOGRAPHY: A 6-Cypriot JR4 was used to engage the left subclavian artery. Soheila ges were obtained via hand injection through the 6-Cypriot JR4. Angiography demonstrated interval res olution of the spasm. COMPLICATIONS: None. CONCLUSIONS: 1. Bedc-vd-pppmnukr coronary artery disease without flow limitation. 2. Plan is for medical management. /[id number]/MODL
[2018-02-02] MEDS ORDERED: fentaNYL 100 MCG/2 ML INJ IV PRN (13:56)
[2018-02-02] MEDS ORDERED: fentaNYL 100 MCG/2 ML INJ IV ONE (14:00)
[2018-02-02] MEDS ORDERED: MIDAZOLAM 2 MG/2 ML VIAL IVP ONE (14:00)
[2018-02-02] MEDS ORDERED: LABETALOL HCL 5 MG/ML 20 ML MDV ONE (14:30)
[2018-02-02] MEDS ORDERED: ATROPINE SULFATE 1 MG/10 ML SYR ONE (14:33)
[2018-02-02] MEDS ORDERED: LABETALOL HCL 5 MG/ML 20 ML MDV IV ONE (14:45)
[2018-02-02] MEDS ORDERED: KETOROLAC 30 MG/1 ML SDV ONE (14:56)
[2018-02-02] MEDS ORDERED: KETOROLAC 15 MG/1 ML SDV IVP ONE (15:15)
[2018-02-02] MEDS ORDERED: ONDANSETRON DISINTEGRATING 4 MG TAB PO PRN (15:25)
[2018-02-02] MEDS ORDERED: ONDANSETRON 4 MG/2 ML VIAL IVP PRN (15:25)
[2018-02-02] MEDS ORDERED: ACETAMINOPHEN 325 MG TAB PO PRN (15:25)
[2018-02-02] MEDS ORDERED: HYDROCODONE/APAP 5/325 TAB PO PRN (16:14)
[2018-02-02] MEDS ORDERED: NITROGLYCERIN 0.4 MG BTL SL PRN (16:14)
[2018-02-02] MEDS ORDERED: OXYCODONE/APAP 5/325 TAB PO PRN (16:14)
[2018-02-02] MEDS ORDERED: ATROPINE SULFATE 1 MG/10 ML SYR IVP PRN (16:14)
[2018-02-02] MEDS ORDERED: BISACODYL 10 MG SUPP PR PRN (17:17)
[2018-02-02] MEDS ORDERED: D50W 25 GM/50 ML SYR IVP PRN (17:20)
[2018-02-02] MEDS ORDERED: ceFAZolin 1 GM VIAL IV SCH (17:30)
[2018-02-02] MEDS: ceFAZolin 2 GM/SWFI 2 GM/20 ML SYR IVP SCH (18:30)
[2018-02-02] MEDS ORDERED: ATORVASTATIN CALCIUM 40 MG TAB PO SCH (21:00)
[2018-02-02] MEDS ORDERED: INSULIN GLARGINE 100 UNITS/ML UNIT SC SCH (21:00)
[2018-02-02] MEDS ORDERED: SENNOSIDES/DOCUSATE SODIUM TAB PO SCH (21:00)
[2018-02-02] MEDS ORDERED: NON-FORMULARY NEW DRUG (Insulin Detemir [Levemir] 35 UNIT) SQ SCH (21:00)
[2018-02-02] MEDS: traMADol 50 MG TAB PO SCH (21:27)
[2018-02-02] MEDS: TRIAMCINOLONE 0.1% 15 GM CRTUBE TP SCH (21:29)
[2018-02-02] MEDS: AMMONIUM LACTATE 12% 8 OZ LOTION TP SCH (22:32)
[2018-02-03] MEDS: ceFAZolin 2 GM/SWFI 2 GM/20 ML SYR IVP SCH ×2 (02:23→11:37)
[2018-02-03 03:46] LABS: PLATELET COUNT 373 10^3/uL (150-400)
[2018-02-03] MEDS: traMADol 50 MG TAB PO SCH (08:05)
[2018-02-03] MEDS ORDERED: BISOPROLOL FUMARATE 5 MG TAB PO SCH (09:00)
[2018-02-03] MEDS ORDERED: Herbals/Supplements -Info Only PO SCH (09:00)
[2018-02-03] MEDS ORDERED: POLYETHYLENE GLYCOL 3350 17 GM PKT PO SCH (09:00)
[2018-02-03] MEDS ORDERED: LIDOCAINE 4% TP SCH (09:00)
[2018-02-03] MEDS ORDERED: ASPIRIN 81 MG CHEWABLE TAB PO SCH (09:00)
[2018-02-03] MEDS ORDERED: FUROSEMIDE 40 MG TAB PO SCH (09:00)
[2018-02-03] MEDS: TRIAMCINOLONE 0.1% 15 GM CRTUBE TP SCH (09:34)
[2018-02-03 09:38] VITALS: BP 139/77
[2018-02-03] MEDS: AMMONIUM LACTATE 12% 8 OZ LOTION TP SCH (11:32)
--- NOTE | 2018-02-03 12:01 | GDS ---
[f rep st] DISCHARGE SUMMARY HISTORY AND HOSPITAL COURSE: Patient was admitted to the hospital after coronary angiography. It wa s performed by my partner, Dr. Miles. It was done through the left wrist and then through the right groin. There were no complications. The patient tolerated the procedure well. Please see the [facility] cardiac procedure note for further details. Left ventriculogram was not done because of difficu lty passing the catheter across the valve. Left main coronary was normal. LAD had a single discrete 40% mid stenosis. Diagonal was free of disease. Circumflex was large and dominant. The circumflex gave rise to 5 OM posterolateral branches. The circumflex coronary artery had a mid 20% stenosis. Branches were free of any significant disease. The patient remained in the hospital overnight to geneva ch him and make sure that he was fine. His history includes chest discomfort with an abnormal nuclear stress test which showed possible infe rolateral ischemia, and for that reason, he was brought in for elective coronary angiography. He is going home on the same medicines he came in on. I have spent an extensive period of time talki ng to him about prevention, weight loss, activity, food choices. I will see him in followup the day after . All his questions have been answered. Complications are none. He will follow up with his primary ca re doctor in the meantime. /[id number]/MODL
--- NOTE | 2018-02-03 13:41 | PDIAF ---
- Diagnosis Code Status: Full Code - Medication Management Discharge Medications: Medications to Continue on Transfer Aspirin [Aspirin 81mg (*)] 81 mg PO DAILY 08/13/17 [Last Taken 1 Day Ago ~] Atorvastatin Calcium [Lipitor 40 mg (*)] 40 mg PO HS 08/13/17 [Last Taken 1 Day Ago ~02/01/18] Furosemide [Lasix 40 MG (*)] 40 mg PO DAILY 08/13/17 [Last Taken 1 Day Ago ~] Acetaminophen [Tylenol 325mg (*)] 650 mg PO Q12 PRN 12/16/17 [Last Taken ] Bisacodyl [Magic Bullet 10 mg] 10 mg [place] DAILY PRN 01/19/18 [Last Taken 1 Day Ago ~02/01/18] Bisoprolol Fumarate [Zebeta (*)] 5 mg PO DAILY 01/19/18 [Last Taken 1 Day Ago ~ 02/01/18] Insulin Detemir [Levemir] 35 unit SQ HS 01/19/18 [Last Taken 1 Day Ago ~02/01/18 ] Metformin HCl [Metformin 1000 mg] 1,000 mg PO BIDMEAL 01/19/18 [Last Taken 1 Day Ago ~02/01/18] Ondansetron [Ondansetron Odt] 4 mg PO Q4 PRN 01/19/18 [Last Taken 1 Day Ago ~] Sennosides/Docusate Sodium [Senna-S Tablet] 2 each PO HS 01/19/18 [Last Taken 1 Day Ago ~02/01/18] oxyCODONE IR [Oxycodone Ir (*)] 5 mg PO Q8 PRN 01/19/18 [Last Taken 1 Day Ago ~ 02/01/18] Polyethylene Glycol 3350 [Miralax 17 gm (*)] 17 gm PO DAILY pkt 01/27/18 [Last Taken Unknown] traMADol [Ultram 50 mg (*)] 100 mg PO TID tab 01/27/18 [Last Taken Unknown] Ammonium Lactate [Lac Hydrin 12% (*)] 1 delmy TP BID 02/02/18 [Last Taken Unknown] Herbals/Supplements -Info Only 1 ea PO DAILY 02/02/18 [Last Taken Unknown] Lidocaine Gel 4% 1 delmy TP DAILY 02/02/18 [Last Taken Unknown] Triamcinolone 0.1% [Triamcinolone 0.1% Cream (*)] 1 delmy TP BID 02/02/18 [Last Taken Unknown] ceFAZolin [Ancef] 2 gm IV Q8H 02/02/18 [Last Taken Unknown] Discharge Medications: Refer to the Discharge Home Medication list for PRN reason. - Orders Diet Recommendation: no restrictions on diet Diet Texture: Regular Texture Diet - Follow Up Care Current Providers and Referrals: ZACKERY SOLOMON [Other] Max Taylor MD [Medical Doctor] - 03/17/18
--- NOTE | 2018-02-03 16:44 | ASDISCHSUM ---
Discharge Information Plan Status:SNF Medically Cleared to Leave:02/03/2018 Discharge Date:02/03/2018 03:30 PM D/C Disposition:[facility] ADT D/C Disposition:Home, Routine, Self-Care Projected Discharge Date:02/03/2018 11:00 AM Transportation at D/C:Wheelchair Van Discharge Delay Reason: Follow-Up Date:02/03/2018 11:00 AM Discharge Slot: Final Diagnosis: Placement Information Referral Type:*Detention/SNF Referral ID:[id number] Provider Name:JENIFFER Mariee Address 1:[address] Phone Number: Address 2: Fax Number: City:[place] Selection Factors: State:[place] Patient Contact Information Contact Name:HUNTER Relationship:Sister Address[address] Work Phone: City:[place] Alternate Phone: State/Zip Code:[place] [address] Email: Financial Information Financial Class:Medicare Primary Plan Desc:MEDICARE OUTPATIENT Primary Plan Number:[id number] Secondary Plan Desc:[place] Secondary Plan Number:[id number] Assessment Information Case Management Discharge Plan Note Case Management Discharge Discharge Order Complete? Answers: Yes Patient to Obtain Answers: Other Notes: [email or web address] Medications Transportation Arranged Answers: Other Notes: transport arranged by [email or web address] Transport will Pick (Date 02/03/2018 03:00 PM & Time) Faxed Final Orders Answers: Yes Agency/Facility Transfer Answers: Yes Report Printed & Faxed to Receiving Agency Discharge Comments Notes: 02/03/2018 pt admitted for Chest Pain and had a coronary angiography. Pt d/c back to [facility] where he resides with follow up as directed. [facility] arranged transport. [facility] called report. Date Signed: 02/03/2018 04:42 PM Electronically Signed By:Patricia Drummond RN [facility] Length of stay for Answers: Less than 1 day current admission Acuity / Level of Answers: No Care: Did the patient have an inpatient admission? Comorbidities - select Answers: Coronary Artery Disease all that apply # of Emergency department Answers: 3-4 visits in the last 6 months Score: 5 Date Signed: 02/03/2018 04:43 PM Electronically Signed By:Patricia Drummond RN Intervention Information Intervention Type:JOB-Signed Date of Service:02/03/2018 11:23 AM Patient Type:Observation Staff Member:Venessa Adames Hours: Discipline: Severity: Comment:
== END 2018-02-03 15:30 ==
LOC: FCATH 09:36 → F2W 14:49
PROVIDERS: ADMIT Internal Medicine; ATTEND Internal Medicine
PROC: B2111ZZ Fluoroscopy of Multiple Coronary Arteries using Low Osmolar Contrast (ICD-10-PCS; principal; 2018-02-02)
PROC: 4A0 Measurement and Monitoring, Physiological Systems, Measurement (ICD-10-PCS; 2018-02-02)
DX: R07.9 Chest pain, unspecified (principal); I25.10 Atherosclerotic heart disease of native coronary artery without angina pectoris; L03.314 Cellulitis of groin; R94.39 Abnormal result of other cardiovascular function study; I10 Essential (primary) hypertension; E66.9 Obesity, unspecified; Z68.41 Body mass index [BMI] 40.0-44.9, adult; E78.5 Hyperlipidemia, unspecified; E11.9 Type 2 diabetes mellitus without complications; G47.33 Obstructive sleep apnea (adult) (pediatric); Z79.82 Long term (current) use of aspirin; Z79.84 Long term (current) use of oral hypoglycemic drugs; Z85.828 Personal history of other malignant neoplasm of skin
CPT/HCPCS: 93005; 93454; C1769; J0690; J1644; J1815; J1885; J2250; J3010; Q9967; J0461

== ENCOUNTER → 2019-03-25 | Outpatient (CLI) | payer OTHER, MEDICAID ==
[~2019-03-25] MED LIST: IOPAMIDOL (ISOVUE 370) 100 ML BTL IV ONE
== END ==
LOC: FIMAGING 09:24
PROVIDERS: ATTEND Surgery
DX: L97.821 Non-pressure chronic ulcer of other part of left lower leg limited to breakdown of skin (principal); I73.9 Peripheral vascular disease, unspecified
CPT/HCPCS: 75635; Q9967; 82565-PO